=== PATIENT | female | born 1940 | race Caucasian/White ===

== ENCOUNTER → 2016-09-21 | Outpatient (CLI) | payer MEDICARE, OTHER ==
[~2016-09-21] MED LIST: AMITRIPTYLINE50 MG PO; ASPIRIN81 M1 PO; BACTRIM DS 8001 TA1 PO; CELEBREX200 MG PO; CIPROFLOXACIN500 MG PO; EXELON9.5 MG/24 TD; FLUVOXAMINE100 MG PO; LIPITOR10 MG PO; NAMENDA-7 PO; PREMPRO PO; PYRIDIUM200 MG PO; SYNTHROID,LEVO50 MCG PO; VITAMIN E1000 IU PO
== END | disposition home or self-care (01) ==
LOC: US 14:15
DX: S80.11XA Contusion of right lower leg, initial encounter (principal); M79.89 Other specified soft tissue disorders; X58.XXXA Exposure to other specified factors, initial encounter; Y93.89 Activity, other specified; Y92.89 Other specified places as the place of occurrence of the external cause; Y99.8 Other external cause status

== ENCOUNTER → 2016-11-04 | Outpatient (CLI) | payer MEDICARE, OTHER ==
[2016-11-04 10:37] LABS: BASO % 0.7 % (0.0-1.0); EOS # 0.2 10*3/uL (0.0-0.4); HEMATOCRIT 43.8 % (37.0-47.0); HEMOGLOBIN 14.4 g/dl (12.0-16.0); LYMPH % 33.6 % (27.0-41.0); MEAN CELL VOLUME 96.7 fl (81.0-99.0); MEAN CORPUSCULAR HGB 31.8 pg (27.0-31.0); MEAN CORPUSCULAR HGB CONC 32.9 g/dl (33.0-37.0); MEAN PLATELET VOLUME 11.4 fl (9.6-12.3); MONO # 0.4 10*3/uL (0.1-1.0); MONO % 6.9 % (3.0-9.0); NEUT # 3.3 10*3/uL (2.3-7.9); NEUT % 55.5 % (47.0-73.0); PLATELET COUNT AUTOMATED 147 10*3/uL (130-400); RED BLOOD COUNT 4.53 10*6/uL (4.10-5.10); RED CELL DISTRI WIDTH 12.4 % (0-14.5); WHITE BLOOD COUNT 5.9 10*3/uL (4.8-10.8)
[2016-11-04 10:53] LABS: HEMOGLOBIN A1c 5.6 % (4.8-5.6)
[2016-11-04 10:57] LABS: ALBUMIN 3.4 gm/dl (3.1-4.5); ALKALINE PHOSPHATASE 74 U/L (45-117); BILIRUBIN, TOTAL 0.5 mg/dl (0.2-1.0); BUN 23 mg/dl (7-24); CARBON DIOXIDE 26 mmol/L (21-32); CHLORIDE 112 mmol/L (98-107); CHOLESTEROL 111 mg/dL (<200); EST GLOM FILT AFRICAN AMERICAN > 60 ml/min; FREE T4 0.91 ng/dl (0.76-1.46); GLUCOSE 88 mg/dL (65-99); HDL CHOLESTEROL 57 mg/dl (40-60); LDL CHOLESTEROL 44 mg/dL (9-159); POTASSIUM 4.1 mmol/L (3.5-5.1); SGOT/AST 30 IU/L (3-35); SGPT/ALT 50 U/L (12-78); SODIUM 145 mmol/L (136-145); TOTAL PROTEIN 6.3 gm/dL (6.4-8.2); TRIGLYCERIDES 49 mg/dl (<150); VLDL CHOLESTEROL 10 mg/dL (6-40)
== END | disposition home or self-care (01) ==
LOC: LAB 00:35
PROVIDERS: Internal Medicine
DX: E03.9 Hypothyroidism, unspecified (principal); E78.2 Mixed hyperlipidemia

== ENCOUNTER → 2017-05-15 | Outpatient (CLI) | payer MEDICARE, OTHER ==
[2017-05-15 10:45] LABS: BASO % 0.5 % (0.0-1.0); EOS # 0.2 10*3/uL (0.0-0.4); HEMATOCRIT 43.2 % (37.0-47.0); HEMOGLOBIN 14.5 g/dl (12.0-16.0); LYMPH # 1.8 10*3/uL (1.3-4.4); LYMPH % 28.7 % (27.0-41.0); MEAN CELL VOLUME 96.2 fl (81.0-99.0); MEAN CORPUSCULAR HGB 32.3 pg (27.0-31.0); MEAN CORPUSCULAR HGB CONC 33.6 g/dl (33.0-37.0); MEAN PLATELET VOLUME 11.5 fl (9.6-12.3); MONO # 0.5 10*3/uL (0.1-1.0); MONO % 7.2 % (3.0-9.0); NEUT # 3.9 10*3/uL (2.3-7.9); NEUT % 60.4 % (47.0-73.0); PLATELET COUNT AUTOMATED 151 10*3/uL (130-400); RED BLOOD COUNT 4.49 10*6/uL (4.10-5.10); RED CELL DISTRI WIDTH 12.5 % (0-14.5); WHITE BLOOD COUNT 6.4 10*3/uL (4.8-10.8)
[2017-05-15 11:15] LABS: ALBUMIN 3.4 gm/dl (3.1-4.5); ALKALINE PHOSPHATASE 82 U/L (45-117); BUN 25 mg/dl (7-24); CHLORIDE 113 mmol/L (98-107); CHOLESTEROL 123 mg/dL (<200); CREATININE 0.92 mg/dL (0.55-1.02); FREE T4 0.91 ng/dl (0.76-1.46); HDL CHOLESTEROL 58 mg/dl (40-60); LDL CHOLESTEROL 49 mg/dL (9-159); POTASSIUM 3.9 mmol/L (3.5-5.1); SGOT/AST 32 IU/L (3-35); SGPT/ALT 49 U/L (12-78); SODIUM 146 mmol/L (136-145); TOTAL PROTEIN 6.5 gm/dL (6.4-8.2); TRIGLYCERIDES 78 mg/dl (<150); VLDL CHOLESTEROL 16 mg/dL (6-40)
== END | disposition home or self-care (01) ==
LOC: LAB 01:13
PROVIDERS: Internal Medicine
DX: E03.9 Hypothyroidism, unspecified (principal); E78.2 Mixed hyperlipidemia

== ENCOUNTER 2017-07-13 09:37 | Inpatient (IN) | payer MEDICARE, OTHER ==
[~2017-07-13] VITALS: Ht 167.6 cm; Wt 83.1 kg
[2017-07-13] VITALS (9 sets, daily range): BP systolic 92–130; BP diastolic 60–82
--- NOTE | ~2017-07-13 | PR ---
[place], [place] PROGRESS NOTE NAME: HARJEET ENRIQUEZ UNIT #: [id number] ROOM: 510 DOCTOR: RUBEN MEZA MD,JAD BIRTHDATE: [birth year] DOS: 07/22/2017 PULMONARY FOLLOWUP SUBJECTIVE: She has been noted comfortable at this time, resting in the bed. Thoracentesis right-sided pleural fluid was done. The patient was noted significant improvement in the symptoms of shortness of breath. The oxygen requirement was also decreased. She had not been reported any symptoms of hemodynamic instability. The of the patient was present in the room with the patient. She had not been noted with any abdominal pain. She has not been reported any nausea or vomiting. Oral intake of the patient described to be good. The was present in the room with the patient as well. The remaining review of systems cannot be completed because the patient's history of dementia. OBJECTIVE: VITAL SIGNS: For the patient, which has been recorded showed the temperature noted as normal, respiratory rate of 18, heart rate of 72, blood pressure 126/80. HEENT: Examination shows head was atraumatic. Eyes nonicterus. NECK: Supple. CARDIOVASCULAR: S1, S2 is audible. LUNGS: The patient was noted without any wheezing or crackles at the present time. Breaths are noted diminished in the left lower lung. ABDOMEN: Soft, nontender. EXTREMITIES: Without any acute edema. CENTRAL NERVOUS SYSTEM: Does not appear to have a gross focal neurologic deficit. The patient is cooperative with the examination. MUSCULOSKELETAL: No deformities. SKIN: No lesions or rashes. LABORATORY DATA: Pleural fluid analysis, right pleural for the patient noted WBCs of 301 with differentials of 34% neutrophils, 10% lymphocytes, 29% macrophages, ____ epithelial cells. Chemistry of the pleural fluid noted consistent with a transudative pleural effusion. CBC: WBC count 14,000, hemoglobin 13, hematocrit 41, platelet count was normal 137,000. BMP: BUN 26, creatinine was normal, sodium 146, total protein 5.7, albumin 2.7. IMPRESSION: 1. The patient has been currently noted with progressive improvement and resolution of the pleural fluid with acute bilateral pulmonary embolism. 2. Deep venous thrombosis of bilateral lower extremity, stable. 3. Improvement in the respiratory failure was noted. The patient with decreased oxygen requirement. 4. Chronic dementia. The pleural fluid noted transudative effusion rather relative pulmonary embolism with the patient with congestive heart failure, not very clear. PLAN OF MANAGEMENT: Continue diuretics, bronchodilators, oxygen supplementation, and anticoagulation. Discharge planning for the patient could [place], [place] PROGRESS NOTE NAME: HARJEET ENRIQUEZ UNIT #: [id number] ROOM: 510 DOCTOR: RUBEN MEZA MD,JAD BIRTHDATE: [birth year] be started in the next couple of days. In the meantime, continue to maximize the medical management for the patient at this time Usual care, other supportive therapy, plan of management, questions asked by the were answered in the room to his satisfaction. JAD MIRANDA MD CM:PNTRANS [id number] JAD MEZA MD 07/23/17 0330 interface
--- NOTE | ~2017-07-13 | PROC NOTE ---
[place], [place] PROCEDURE NOTE NAME: HARJEET ENRIQUEZ UNIT #: [id number] ROOM: [facility] DOCTOR: RUBEN MEZA MD,JAD BIRTHDATE: [birth year] DOS: 07/21/2017 PROCEDURE: Thoracentesis on the right side with ultrasound guidance at the bedside. PREOPERATIVE DIAGNOSIS: The patient with moderate size pleural fluid on the right side. POSTOPERATIVE DIAGNOSES: Successful removal of 550 mL of pleural fluid without any complications at the bedside. PROCEDURE DESCRIPTION: Informed consent obtained from the patient's . The patient was placed in the sitting position. Ultrasound of the chest was performed. The site of thoracentesis at the right lower posterior chest wall was marked. Skin was cleaned with chlorhexidine solution. After cleaning of the skin, sterile field was achieved. 1% lidocaine was administered in the skin and intercostal space. During administration of local anesthesia for the patient, a small amount of fluid was aspirated confirming the site of thoracentesis in the syringe. After that, a small incision was given in the skin. [place] thoracentesis catheter introduced through the incision into the right pleural space without any difficulty. Initial fluid about 50 mL was drawn in the syringe. The pH was also obtained for this patient on the fluid. Pleural fluid was sent for the appropriate testing to the lab after draining in vacuum bottle the remaining fluid. Total 550 mL of fluid was removed. No complications noted during and after procedure for the patient. The chest x-ray that was done for the patient post-procedure shows marked improvement in aeration of the lung without any pneumothorax, improvement in the aeration of the lungs. JAD MIRANDA MD CM:PROCNOTE:PROCEDURE NOTE [id number] JAD MEZA MD
--- NOTE | ~2017-07-13 | PR ---
[place], [place] PROGRESS NOTE NAME: HARJEET ENRIQUEZ UNIT #: [id number] ROOM: 510 DOCTOR: RUBEN MEZA MD,JAD BIRTHDATE: [birth year] DOS: 07/21/2017 SUBJECTIVE: The patient was noted comfortable at this time without any acute distress. She has been planned for thoracentesis to be done today. Continue oxygen supplementation with nasal cannula. The patient was noted with history of dementia, unable to give any history, has not been reported any pain. She has been noted with intermittent agitation symptoms at this time. She has not been noted any acute hemodynamic instability reported by the nursing staff. The remaining system were not reviewed because of the patient's history of dementia. Consent for thoracentesis was obtained from the patient, has been for bilateral thoracentesis consideration. OBJECTIVE: VITAL SIGNS: Shows a normal temperature, respiratory rate 18, heart rate 81, blood pressure 124/54, pulse oxygen saturation recorded as 93% on 2 liter nasal cannula. HEENT: Ecdd-fv-bkgyvqrc obesity. NECK: Supple. CARDIOVASCULAR: S1, S2 audible. LUNGS: Decreased breath sounds in the lower portion of the lungs bilaterally. ABDOMEN: Soft. Moderate obesity. Bowel sounds present. EXTREMITIES: Show severe edema of the lower extremities. CENTRAL NERVOUS SYSTEM: Currently nonfocal with limited exam. The patient noted mentally awake. SKIN: Visible skin, no lesions or rashes. MUSCULOSKELETAL: Without any acute deformities. LABORATORY DATA: CMP today, BUN 30, creatinine was normal. AST 45, ALT 165. IMPRESSION: 1. The patient who has been noted bilateral pleural fluid with acute bilateral pulmonary embolism and extensive deep venous thrombosis, bilateral lower extremities. 2. History of dementia ____ disease as well with intermittent agitation. 3. Acute respiratory failure secondary to pulmonary embolism. 4. Superimposed congestive heart failure would be considered as well with bilateral pleural effusions. PLAN OF TREATMENT: Thoracentesis was performed with the ultrasound at the bedside. Ultrasound of the chest was performed bilaterally, noted with moderate sized pleural fluid on the right side and a small pleural fluid on the left side. Decision about thoracentesis will made on the right side. [place], [place] PROGRESS NOTE NAME: HARJEET ENRIQUEZ UNIT #: [id number] ROOM: [facility] DOCTOR: JAD MOLINA MD BIRTHDATE: [birth year] JAD MIRANDA MD CM:PNTRANS [id number] JAD MEZA MD 07/22/17 0149 interface
--- NOTE | ~2017-07-13 | PR ---
[place], [place] PROGRESS NOTE NAME: HARJEET ENRIQUEZ UNIT #: [id number] ROOM: 510 DOCTOR: JAD MOLINA MD BIRTHDATE: [birth year] DOS: 07/23/2017 PULMONARY PROGRESS NOTE SUBJECTIVE: She has been noted comfortable at this time, resting in the bed. Oxygen supplementation is used by nasal cannula. The was present in the room with the patient. The patient remains awake and alert. OBJECTIVE: VITAL SIGNS: Temperature 99 degree Fahrenheit, respiratory rate 18, heart rate 74, blood pressure 118/54. Pulse oxygen saturation of the patient was noted as 95% on 2 liters nasal cannula. HEENT: Showed head was atraumatic, eyes nonicterus. NECK: Supple. CARDIOVASCULAR: S1, S2 audible. LUNGS: The patient was noted without any wheezing or crackles at the present time. Breaths are noted diminished in the lower portion of the lungs. There were no crackles. ABDOMEN: Soft, nontender. EXTREMITIES: Without any acute edema. LABORATORY DATA: CBC of the patient this morning, WBC count 14.3, hemoglobin and hematocrit normal, platelet count was normal. BMP of the patient was noted with BUN 27, creatinine 1.07. IMPRESSION: 1. Stable respiratory status, bilateral deep venous thrombosis as well as a pulmonary embolism. 2. Status post thoracentesis with transudative effusion. 3. History of dementia. 4. Resolving acute respiratory failure. PLAN OF TREATMENT: Continuation of the current therapy and plan of management for the patient at the present time without any changes in the treatment. The patient continues to do well on oxygen supplementation, titrate to maintain a pulse oxygen saturation of 92% or greater. Other treatment and plan for the patient as previously. Usual care. [place], [place] PROGRESS NOTE NAME: HARJEET ENRIQUEZ UNIT #: [id number] ROOM: 510 DOCTOR: JAD MOLINA MD BIRTHDATE: [birth year] JAD MIRANDA MD CM:PNTRANS [id number] JAD MEZA MD 07/24/17 0026 interface
--- NOTE | ~2017-07-13 | CON ---
[place], [place] REPORT OF CONSULTATION NAME: HARJEET ENRIQUEZ UNIT #: [id number] ROOM: 510 DOCTOR: RUBEN MEZA MDJAD BIRTHDATE: [birth year] DOS: 07/19/2017 PULMONARY CONSULTATION, EVALUATION, AND MANAGEMENT CONSULTATION REQUESTED BY: Hospitalist. REASON FOR CONSULTATION: Assessment of current pulmonary embolism and bilateral pleural effusions. HISTORY OF PRESENT ILLNESS: This is a 77-year-old white female patient who has been admitted to the hospital on 07/13/2017. History contained in the document is actually from review of the medical record by the other physician. The patient has been noted with history of dementia, unable to get a verbal communications. She has been admitted to the hospital on 07/13/2017. The patient has been noted with recurrent falls at home. The patient has been noted with progressive general weakness, fatigue and a total of 6 falls at home in a week. The patient has been currently hospitalized and treated for those and multiple other conditions of the patient, which has been diagnosed on this admission. She was also noted with good oral nutrition support for a couple of weeks as reported by the . The patient has been reported with symptoms of shortness of breath ongoing for the past few days. The patient has been treated in the hospital and underwent CT of the chest yesterday, which has reported evidence of pulmonary embolism with pleural fluids. She has been currently comfortably resting on the bed using oxygen supplementation, without any acute distress. During the admission, the patient was also noted in nonsustained ventricular tachycardia, with abnormal troponins and the assessment of the patient has been continued by Dr. Hernandes from the Cardiology Services. The echocardiogram was done on this admission, which has been reported with 65-70%, left ventricular ejection fraction. Right ventricular function was noted severely decreased for ith evidence of severe pulmonary hypertension. The right ventricular systolic pressure was noted as 80. REVIEW OF SYSTEMS: Certainly cannot be completed due to lack of communication for the accurate review of systems. PAST MEDICAL HISTORY: On this admission, noted by the primary care attendin. History of hyperlipidemia. 2. Hypothyroidism. 3. Vitamin D deficiency. 4. History of longstanding dementia for about 15 years. 5. Prediabetes mellitus. PAST SURGICAL HISTORY: Reported as: 1. D and C. 2. Bunionectomy of both great toes. SOCIAL HISTORY: The patient is , was a resident [facility] to the admission to the current hospital. Noted a lifetime nonsmoker. No history of alcohol use or illicit drug use reported. [place], [place] REPORT OF CONSULTATION NAME: HARJEET ENRIQUEZ UNIT #: [id number] ROOM: [facility] DOCTOR: RUBEN MEZA MD,JAD BIRTHDATE: [birth year] FAMILY HISTORY: Unknown. MEDICATIONS: Noted on admission by the nursing staff as use of aspirin, Lipitor, calcium carbonate, Celebrex, vitamin D, fluvoxamine, Synthroid, Prempro, Namenda, Seroquel, Exelon patches, vitamin E, and vitamin K2. DRUG ALLERGIES: REPORTED ALLERGY TO THE CODEINE PHOSPHATE. PHYSICAL EXAMINATION: GENERAL: This is a 77-year-old female, who has been currently noted to be awake and alert without any acute distress, sitting on the bed. Her height recorded by the nursing staff on the current admission was 5 feet 6 inches, weight 183 pounds, BMI 29.5. VITAL SIGNS: Recorded, shows the temperature noted as normal in the last 2 days, respiratory rate of 16-20, heart rate 66-72, blood pressure 92/68-124/88. Pulse oxygen saturation with the patient on 4 liters nasal cannula was still noted 98% saturation and then on 2 liters nasal cannula later on this morning was 94% saturation. Pulse oxygen saturation on admission at room air was noted 91% saturation. HEENT: Head is atraumatic. Eyes, nonicterus. NECK: Supple. Oral mucosa appeared to be moist. CARDIOVASCULAR: S1, S2 is audible. LUNGS: Decreased breath sounds noted in the lower portion of the lungs bilaterally. Decreased breath sounds are noted, greater on the right than the left side. There were no crackles heard. There was no wheezing present. EXTREMITIES: Noted with 1-2+ pitting edema. SKIN: Visible skin, no lesions or rashes. MUSCULOSKELETAL: Without any acute obvious deformities. CENTRAL NERVOUS SYSTEM: Unable to assess. The patient noted awake and alert. LABORATORY AND RADIOLOGIC DATA: Review of the radiology data for this patient. The chest x-ray of the patient that was done on 07/13/2017 was noted with somewhat rotated film without any evidence of congestive heart failure, pleural fluid and other findings. The chest x-ray of the patient that was done on 07/18/2017 shows interval development of the pleural fluid bilaterally, greater on the right than the left side with prominent pulmonary hilar area. The patient had a CT scan of the chest and the abdomen done on 07/14/2017 without contrast. Pulmonary artery and the hilar structure could not be clearly delineated because of lack of the IV contrast. Small bilateral pleural fluids were noted for this patient. Hiatal hernia was also present in this patient as well. The CT scan of the chest that was completed yesterday on 07/18/2017, which was ordered by Dr. Hernandes showed large bilateral pulmonary embolism noted involving almost all of the pulmonary arterial branches, right and the left side; however, the clot burden noted significantly larger on the right than the left side. There was no evidence of saddle embolus. Pleural fluid, which were noted previous scan of the chest at this time has been noted marked increase with tihfocmu-ms-mfwmo right pleural fluid and moderate-sized left pleural effusion as well. There were no visible pulmonary masses or any significant lymphadenopathy was noted with the current CT scan of the chest. CMP of the patient that was done on 07/19/2017 shows BUN 27, creatinine was normal, glucose [place], [place] REPORT OF CONSULTATION NAME: HARJEET ENRIQUEZ UNIT #: [id number] ROOM: [facility] DOCTOR: RUBEN MEZA MD,[facility] BIRTHDATE: [birth year] 141, potassium 3.4, AST 15, ALT 249, alkaline phosphatase 183. CBC of the patient of 07/19/2017, WBC count 12.6, hemoglobin 13.2, hematocrit 39.4, platelet count of 91,000. PTT of the patient this morning noted 151. The ammonia level was 24. The PTT of the patient that was done at midnight was 250. The PT/INR were noted as normal. Blood culture of the patient from 07/13/2017 was noted as normal. IMPRESSION: 1. The patient who has been currently admitted to the hospital noted with bilateral submassive nonsaddle pulmonary embolism involving multiple artery branches. 2. Severe pulmonary hypertension manifested with echocardiogram with right heart dysfunction also noted with acute cor pulmonale related to the current submassive pulmonary embolism. 3. History of chronic dementia. 4. Bilateral pleural fluid, most likely related to the congestive heart failure or pulmonary embolus would be likely. 5. Rule out deep venous thrombosis of the lower extremities as well as to assess the burden of the current pulmonary emboli. 6. History of chronic dementia as well. 7. Severe acute hypoxic respiratory failure related to the current acute pulmonary embolism. PLAN OF MANAGEMENT: At this time, continue the unfractionated therapeutic heparin. The patient will require the adjustment of the heparin based on protocol, which has been done by the nursing staff. At this time, hold off using the anticoagulation for this patient. If the respiratory distress worsened, certainly thoracentesis could be done with short-term holding off the anticoagulation with unfractionated heparin to stabilize the respiratory status. The patient does not have any evidence of infection. I will order the ultrasound of bilateral lower extremities to assess the deep venous thrombosis and clot burden remaining in the lower extremities. Titrate oxygen to maintain a saturation of oxygen 92% or greater. Usual care, all other supportive therapy, plan of management and treatment. Additional treatment changes to be done for the patient based on the progression of the illness. Supportive therapy, other plan of management for this patient to be continued as previously. Maximizing medical management of the patient's other non-pulmonary conditions as well on this hospitalization. Thanks for allowing me to participate in the care of this patient. [place], [place] REPORT OF CONSULTATION NAME: HARJEET ENRIQUEZ UNIT #: [id number] ROOM: [facility] DOCTOR: JAD MOLINA MD BIRTHDATE: [birth year] JAD MIRANDA MD CM:CONSTR:REPORT OF CONSULTATION 1428 07/20/17 0356 interface
--- NOTE | ~2017-07-13 | PR ---
[place], [place] PROGRESS NOTE NAME: HARJEET ENRIQUEZ UNIT #: [id number] ROOM: 510 DOCTOR: RUBEN MEZA MD,JAD BIRTHDATE: [birth year] DOS: 07/20/2017 SUBJECTIVE: The patient has been noted comfortable at this time, resting on her bed. Oxygen supplementation continue with the nasal cannula. She has not been noted any symptoms of chest pain or any abdominal pain. The patient could not communicate affectively because of underlying dementia per report. No acute symptoms when she has been asked. OBJECTIVE: VITAL SIGNS: Which has been recorded for the patient showed normal temperature, respiratory rate 18, heart rate of 85, blood pressure of 90/61. The pulse oxygen saturation of the patient recorded on 2 liters 97% saturation. HEENT: Examination shows head was atraumatic. Eyes nonicterus. NECK: Supple. CARDIOVASCULAR: S1, S2 audible. LUNGS: Noted decreased breaths sounds previously noted bilaterally in the lower lungs. There were no crackles or wheezing. ABDOMEN: Soft, nontender. Bowel sounds present. EXTREMITIES: The patient was noted without any new changes. Edema noted. SKIN: Visible skin, no lesions or rashes. MUSCULOSKELETAL: No deformities. CENTRAL NERVOUS SYSTEM: Intact. LABORATORY DATA: The patient's CBC on 07/20/2017, WBC count 16.1, hemoglobin and hematocrit was normal, platelet count was 113,000, mildly decreased. CMP of the patient, BUN 34, creatinine 1.04, glucose 158. AST 62, ALT 213, and alkaline phosphatase of 205. IMAGING STUDIES: Ultrasound of bilateral lower extremity that I ordered for the patient was completed, it shows evidence of acute deep venous thrombosis, which were present in both of the legs involving the right common femoral and superficial veins as well as left superficial femoral vein as well. IMPRESSION: 1. The patient who has been currently noted with acute hypoxic respiratory failure with bilateral large pleural fluid. 2. Non-saddle bilateral pulmonary embolism. 3. Extensive deep venous thrombosis of bilateral lower extremity involving superficial femoral veins, both sides and the common femoral vein of the right extremity as well. 4. History of chronic dementia. 5. Mild thrombocytopenia, whether it is related to the current thrombotic process with consumption or other etiologies to be determined. PLAN OF MANAGEMENT: The patient has been currently started on Xarelto 15 mg p.o. b.i.d. by primary care physician. The leukocytosis will be monitored. If the family member agrees for the thoracentesis for this patient for symptomatic management, certainly could be done, otherwise continue conservative treatment. All other supportive therapy, plan of management as in progress will be continued. Usual care. All other supportive treatment and therapies as well. [place], [place] PROGRESS NOTE NAME: HARJEET ENRIQUEZ UNIT #: [id number] ROOM: [facility] DOCTOR: JAD MOLINA MD BIRTHDATE: [birth year] Additional treatment changes will be done based on the progression of the illness. JAD MIRANDA MD CM:PNTRANS [id number] JAD MEZA MD 07/20/17 2347 interface
[~2017-07-13 09:37] MED LIST changes: -VITAMIN E1000 IU PO; +VITAMIN E400 UNIT PO
[2017-07-13 10:07] LABS: BASO % 0.2 % (0.0-1.0); EOS % 0.1 % (1.0-4.0); HEMATOCRIT 42.3 % (37.0-47.0); HEMOGLOBIN 14.1 g/dl (12.0-16.0); MEAN CELL VOLUME 97.7 fl (81.0-99.0); MEAN CORPUSCULAR HGB 32.6 pg (27.0-31.0); MEAN CORPUSCULAR HGB CONC 33.3 g/dl (33.0-37.0); MEAN PLATELET VOLUME 11.9 fl (9.6-12.3); MONO # 0.7 10*3/uL (0.1-1.0); MONO % 5.6 % (3.0-9.0); NEUT # 10.9 10*3/uL (2.3-7.9); NEUT % 85.6 % (47.0-73.0); PLATELET COUNT AUTOMATED 112 10*3/uL (130-400); RED BLOOD COUNT 4.33 10*6/uL (4.10-5.10); RED CELL DISTRI WIDTH 13.2 % (0-14.5); WHITE BLOOD COUNT 12.7 10*3/uL (4.8-10.8)
[2017-07-13 10:16] LABS: ACT PARTIAL THROMBO TIME 19.6 SECONDS (20.8-31.5)
[2017-07-13 10:22] LABS: ALBUMIN 3.5 gm/dl (3.1-4.5); CREATININE 1.5 mg/dL (0.55-1.02); POTASSIUM 4.4 mmol/L (3.5-5.1); TOTAL PROTEIN 6.8 gm/dL (6.4-8.2)
[2017-07-13 10:26] LABS: TROPONIN I 0.079 ng/ml (<0.045)
[2017-07-13 11:43] LABS: BILIRUBIN NEGATIVE (NEGATIVE); BLOOD 2+ (NEGATIVE); CLARITY SL CLOUDY (CLEAR); COLOR YELLOW (YELLOW); GLUCOSE NEGATIVE (NEGATIVE); KETONE TRACE (NEGATIVE); LEUKO ESTERASE NEGATIVE (NEGATIVE); NITRITE POSITIVE (NEGATIVE); PH 5.5 (5.0-9.0); SPECIFIC GRAVITY >= 1.030 (1.005-1.030)
[2017-07-13 12:08] LABS: BACTERIA 2+; CALCIUM OXALATE CRYSTALS 1+; MUCOUS 1+
[2017-07-13] MEDS ORDERED: QUETIAPINE FUM100 M1 PO (13:07)
[2017-07-13] MEDS ORDERED: VITAMIN D31000 UNI1 PO (13:29)
[2017-07-13] MEDS ORDERED: VITAMIN K240 MCG PO (13:32)
[2017-07-13] MEDS ORDERED: CALCIUM CARB500 MG PO (13:34)
[2017-07-13 14:47] LABS: CKMB 3.2 ng/ml (0.5-3.6)
[2017-07-14] VITALS: BP 103/57
[2017-07-14 07:45] LABS: BASO % 0.3 % (0.0-1.0); EOS % 0.1 % (1.0-4.0); HEMATOCRIT 43.7 % (37.0-47.0); HEMOGLOBIN 14.3 g/dl (12.0-16.0); LYMPH # 1.8 10*3/uL (1.3-4.4); LYMPH % 12.3 % (27.0-41.0); MEAN CELL VOLUME 99.3 fl (81.0-99.0); MEAN CORPUSCULAR HGB 32.5 pg (27.0-31.0); MEAN CORPUSCULAR HGB CONC 32.7 g/dl (33.0-37.0); MEAN PLATELET VOLUME 12.4 fl (9.6-12.3); MONO # 1.1 10*3/uL (0.1-1.0); MONO % 7.3 % (3.0-9.0); NEUT # 11.5 10*3/uL (2.3-7.9); NEUT % 79.5 % (47.0-73.0); PLATELET COUNT AUTOMATED 111 10*3/uL (130-400); RED CELL DISTRI WIDTH 13.3 % (0-14.5); WHITE BLOOD COUNT 14.5 10*3/uL (4.8-10.8)
[2017-07-14 08:00] VITALS: BP 106/77
[2017-07-14 08:13] LABS: CREATININE 1.34 mg/dL (0.55-1.02); PHOSPHOROUS 3.7 mg/dL (2.5-4.9); POTASSIUM 4.6 mmol/L (3.5-5.1); TOTAL PROTEIN 5.8 gm/dL (6.4-8.2)
[2017-07-14 08:18] LABS: THYROID STIM HORMONE (HS) 3.86 uIU/ml (0.358-4.75)
[2017-07-14 09:04] LABS: VITAMIN D, 25-HYDROXY 26.9 ng/mL (30-100)
[2017-07-14 11:51] VITALS: BP 118/60
[2017-07-14 16:00] VITALS: BP 108/52
[2017-07-14 20:00] VITALS: BP 100/72
[2017-07-15] VITALS: BP 105/73
[2017-07-15 06:04] LABS: BASO % 0.3 % (0.0-1.0); EOS % 0.1 % (1.0-4.0); HEMATOCRIT 42.6 % (37.0-47.0); LYMPH # 2.1 10*3/uL (1.3-4.4); LYMPH % 13.2 % (27.0-41.0); MEAN CELL VOLUME 99.5 fl (81.0-99.0); MEAN CORPUSCULAR HGB 32.7 pg (27.0-31.0); MEAN CORPUSCULAR HGB CONC 32.9 g/dl (33.0-37.0); MEAN PLATELET VOLUME 12.3 fl (9.6-12.3); MONO # 1.3 10*3/uL (0.1-1.0); MONO % 8.1 % (3.0-9.0); NEUT # 12.4 10*3/uL (2.3-7.9); NEUT % 77.7 % (47.0-73.0); NUCLEATED RED BLOOD CELL 0.2 % (0.0-0.0); PLATELET COUNT AUTOMATED 102 10*3/uL (130-400); RED BLOOD COUNT 4.28 10*6/uL (4.10-5.10); RED CELL DISTRI WIDTH 13.3 % (0-14.5)
[2017-07-15 06:37] LABS: CREATININE 1.37 mg/dL (0.55-1.02); POTASSIUM 3.9 mmol/L (3.5-5.1); TOTAL PROTEIN 5.7 gm/dL (6.4-8.2)
[2017-07-15 08:00] VITALS: BP 114/60
[2017-07-15 12:00] VITALS: BP 104/59
[2017-07-15 16:00] VITALS: BP 112/66
[2017-07-15 18:45] LABS: CREATININE 1.32 mg/dL (0.55-1.02)
[2017-07-15 18:54] LABS: TROPONIN I 0.052 ng/ml (<0.045)
[2017-07-15 20:00] VITALS: BP 121/74
[2017-07-16] VITALS: BP 121/67
[2017-07-16 05:54] LABS: BASO % 0.2 % (0.0-1.0); EOS # 0.1 10*3/uL (0.0-0.4); EOS % 0.4 % (1.0-4.0); HEMATOCRIT 41.9 % (37.0-47.0); HEMOGLOBIN 13.9 g/dl (12.0-16.0); MEAN CELL VOLUME 97.7 fl (81.0-99.0); MEAN CORPUSCULAR HGB 32.4 pg (27.0-31.0); MEAN CORPUSCULAR HGB CONC 33.2 g/dl (33.0-37.0); MEAN PLATELET VOLUME 12.7 fl (9.6-12.3); MONO # 1.2 10*3/uL (0.1-1.0); MONO % 8.1 % (3.0-9.0); NEUT # 11.1 10*3/uL (2.3-7.9); NEUT % 76.7 % (47.0-73.0); NUCLEATED RED BLOOD CELL 0.1 10*3/uL (0.0-0.0); NUCLEATED RED BLOOD CELL 0.6 % (0.0-0.0); PLATELET COUNT AUTOMATED 97 10*3/uL (130-400); RED BLOOD COUNT 4.29 10*6/uL (4.10-5.10); RED CELL DISTRI WIDTH 13.2 % (0-14.5); WHITE BLOOD COUNT 14.4 10*3/uL (4.8-10.8)
[2017-07-16 06:09] LABS: ALKALINE PHOSPHATASE 144 U/L (45-117); BILIRUBIN, DIRECT 0.3 mg/dL (0.0-0.2); BUN 30 mg/dl (7-24); CHLORIDE 108 mmol/L (98-107); CREATININE 1.07 mg/dL (0.55-1.02); POTASSIUM 3.8 mmol/L (3.5-5.1); SGOT/AST 140 IU/L (3-35); SGPT/ALT 231 U/L (12-78); SODIUM 141 mmol/L (136-145); TOTAL PROTEIN 5.7 gm/dL (6.4-8.2)
[2017-07-16 08:00] VITALS: BP 104/69
[2017-07-16 12:00] VITALS: BP 110/75
[2017-07-16 16:00] VITALS: BP 101/64
[2017-07-16 20:00] VITALS: BP 123/63
[2017-07-17] VITALS: BP 106/67
[2017-07-17 07:15] LABS: BASO % 0.3 % (0.0-1.0); EOS # 0.3 10*3/uL (0.0-0.4); HEMATOCRIT 42.7 % (37.0-47.0); HEMOGLOBIN 14.2 g/dl (12.0-16.0); LYMPH # 1.2 10*3/uL (1.3-4.4); LYMPH % 9.8 % (27.0-41.0); MEAN CELL VOLUME 98.8 fl (81.0-99.0); MEAN CORPUSCULAR HGB 32.9 pg (27.0-31.0); MEAN CORPUSCULAR HGB CONC 33.3 g/dl (33.0-37.0); MEAN PLATELET VOLUME 13.2 fl (9.6-12.3); MONO % 7.7 % (3.0-9.0); NEUT % 79.6 % (47.0-73.0); NUCLEATED RED BLOOD CELL 0.1 10*3/uL (0.0-0.0); NUCLEATED RED BLOOD CELL 0.8 % (0.0-0.0); PLATELET COUNT AUTOMATED 79 10*3/uL (130-400); RED BLOOD COUNT 4.32 10*6/uL (4.10-5.10); RED CELL DISTRI WIDTH 13.4 % (0-14.5); WHITE BLOOD COUNT 12.6 10*3/uL (4.8-10.8)
[2017-07-17 07:33] LABS: ALBUMIN 2.7 gm/dl (3.1-4.5); CREATININE 1.08 mg/dL (0.55-1.02); POTASSIUM 3.9 mmol/L (3.5-5.1); TOTAL PROTEIN 5.6 gm/dL (6.4-8.2)
[2017-07-17 08:00] VITALS: BP 108/73
[2017-07-17 12:00] VITALS: BP 115/73
[2017-07-17 15:36] LABS: BILIRUBIN NEGATIVE (NEGATIVE); BLOOD 1+ (NEGATIVE); CLARITY CLEAR (CLEAR); COLOR YELLOW (YELLOW); GLUCOSE NEGATIVE (NEGATIVE); KETONE 1+ (NEGATIVE); LEUKO ESTERASE NEGATIVE (NEGATIVE); NITRITE NEGATIVE (NEGATIVE); UROBILINOGEN 0.2 E.U./dl (0.2-1.0)
[2017-07-17 15:45] LABS: BACTERIA 2+; MUCOUS TRACE; RBC 31-40 rbc/hpf (0-2)
[2017-07-17 16:00] VITALS: BP 112/66
[2017-07-17 16:58] LABS: ABG BASE EXCESS -3.7 mmol/L (-2.0-2.0); ABG HCO3 18.3 mmol/l (22-26); ABG O2 SATURATION 90.6 % (95-97); ARTERIAL BLOOD GAS PCO2 27.7 mmHg (35-45); ARTERIAL BLOOD GAS PH 7.44 (7.35-7.45); ARTERIAL BLOOD GAS PO2 63.8 mmHg (80-90)
[2017-07-17 20:00] VITALS: BP 122/66
[2017-07-18 00:30] VITALS: BP 120/51
[2017-07-18 06:59] LABS: ALBUMIN 2.7 gm/dl (3.1-4.5); ALKALINE PHOSPHATASE 180 U/L (45-117); BUN 28 mg/dl (7-24); CHLORIDE 106 mmol/L (98-107); CREATININE 0.92 mg/dL (0.55-1.02); POTASSIUM 3.7 mmol/L (3.5-5.1); SGOT/AST 115 IU/L (3-35); SGPT/ALT 266 U/L (12-78); SODIUM 139 mmol/L (136-145); TOTAL PROTEIN 5.7 gm/dL (6.4-8.2)
[2017-07-18 08:00] VITALS: BP 116/68
[2017-07-18 12:00] VITALS: BP 100/72
[2017-07-18 16:00] VITALS: BP 106/71; BP 92/68
[2017-07-18 16:23] LABS: BASO % 0.2 % (0.0-1.0); EOS # 0.4 10*3/uL (0.0-0.4); EOS % 3.1 % (1.0-4.0); HEMATOCRIT 43.1 % (37.0-47.0); HEMOGLOBIN 14.4 g/dl (12.0-16.0); LYMPH % 7.5 % (27.0-41.0); MEAN CORPUSCULAR HGB 32.7 pg (27.0-31.0); MEAN CORPUSCULAR HGB CONC 33.4 g/dl (33.0-37.0); MEAN PLATELET VOLUME 12.2 fl (9.6-12.3); MONO # 1.1 10*3/uL (0.1-1.0); MONO % 7.8 % (3.0-9.0); NEUT # 10.8 10*3/uL (2.3-7.9); NUCLEATED RED BLOOD CELL 0.1 10*3/uL (0.0-0.0); NUCLEATED RED BLOOD CELL 0.7 % (0.0-0.0); PLATELET COUNT AUTOMATED 100 10*3/uL (130-400); RED CELL DISTRI WIDTH 13.8 % (0-14.5); WHITE BLOOD COUNT 13.4 10*3/uL (4.8-10.8)
[2017-07-18 16:32] LABS: ACT PARTIAL THROMBO TIME 21.6 SECONDS (20.8-31.5); INTERNATIONAL NORM RATIO 1.1 (2.0-3.5)
[2017-07-18 20:00] VITALS: BP 108/84
[2017-07-19] VITALS: BP 98/61
[2017-07-19 04:00] VITALS: BP 124/88
[2017-07-19 06:46] LABS: BASO % 0.2 % (0.0-1.0); EOS # 0.4 10*3/uL (0.0-0.4); EOS % 3.1 % (1.0-4.0); HEMATOCRIT 39.4 % (37.0-47.0); HEMOGLOBIN 13.2 g/dl (12.0-16.0); LYMPH # 1.6 10*3/uL (1.3-4.4); LYMPH % 12.7 % (27.0-41.0); MEAN CELL VOLUME 97.3 fl (81.0-99.0); MEAN CORPUSCULAR HGB 32.6 pg (27.0-31.0); MEAN CORPUSCULAR HGB CONC 33.5 g/dl (33.0-37.0); MEAN PLATELET VOLUME 13.2 fl (9.6-12.3); NEUT # 9.5 10*3/uL (2.3-7.9); NEUT % 75.4 % (47.0-73.0); NUCLEATED RED BLOOD CELL 0.1 10*3/uL (0.0-0.0); NUCLEATED RED BLOOD CELL 0.4 % (0.0-0.0); PLATELET COUNT AUTOMATED 91 10*3/uL (130-400); RED BLOOD COUNT 4.05 10*6/uL (4.10-5.10); RED CELL DISTRI WIDTH 14.1 % (0-14.5); WHITE BLOOD COUNT 12.6 10*3/uL (4.8-10.8)
[2017-07-19 06:51] LABS: ALBUMIN 2.6 gm/dl (3.1-4.5); BUN 27 mg/dl (7-24); CHLORIDE 107 mmol/L (98-107); POTASSIUM 3.4 mmol/L (3.5-5.1); SODIUM 142 mmol/L (136-145)
[2017-07-19 06:55] LABS: ALKALINE PHOSPHATASE 183 U/L (45-117); CREATININE 1.02 mg/dL (0.55-1.02); SGOT/AST 105 IU/L (3-35); SGPT/ALT 249 U/L (12-78); TOTAL PROTEIN 5.3 gm/dL (6.4-8.2)
[2017-07-19 08:00] VITALS: BP 98/68
[2017-07-19 12:00] VITALS: BP 96/58
[2017-07-19 16:00] VITALS: BP 111/61
[2017-07-19 19:58] VITALS: BP 97/63
[2017-07-20 00:08] VITALS: BP 98/61
[2017-07-20 05:47] LABS: BASO % 0.2 % (0.0-1.0); EOS # 0.5 10*3/uL (0.0-0.4); EOS % 3.1 % (1.0-4.0); HEMATOCRIT 40.9 % (37.0-47.0); HEMOGLOBIN 13.5 g/dl (12.0-16.0); LYMPH # 1.5 10*3/uL (1.3-4.4); LYMPH % 9.2 % (27.0-41.0); MEAN CELL VOLUME 98.1 fl (81.0-99.0); MEAN CORPUSCULAR HGB 32.4 pg (27.0-31.0); MEAN PLATELET VOLUME 12.8 fl (9.6-12.3); MONO # 1.3 10*3/uL (0.1-1.0); MONO % 7.7 % (3.0-9.0); NEUT # 12.7 10*3/uL (2.3-7.9); NEUT % 79.1 % (47.0-73.0); NUCLEATED RED BLOOD CELL 0.1 10*3/uL (0.0-0.0); NUCLEATED RED BLOOD CELL 0.6 % (0.0-0.0); PLATELET COUNT AUTOMATED 113 10*3/uL (130-400); RED BLOOD COUNT 4.17 10*6/uL (4.10-5.10); RED CELL DISTRI WIDTH 14.6 % (0-14.5); WHITE BLOOD COUNT 16.1 10*3/uL (4.8-10.8)
[2017-07-20 06:01] LABS: ALBUMIN 2.6 gm/dl (3.1-4.5); ALKALINE PHOSPHATASE 205 U/L (45-117); BUN 34 mg/dl (7-24); CHLORIDE 108 mmol/L (98-107); CREATININE 1.04 mg/dL (0.55-1.02); SGOT/AST 62 IU/L (3-35); SGPT/ALT 213 U/L (12-78); TOTAL PROTEIN 5.6 gm/dL (6.4-8.2)
[2017-07-20 06:05] LABS: SODIUM 144 mmol/L (136-145)
[2017-07-20 06:06] LABS: POTASSIUM 4.4 mmol/L (3.5-5.1)
[2017-07-20 06:30] VITALS: BP 90/76
[2017-07-20 12:00] VITALS: BP 100/82
[2017-07-20 16:00] VITALS: BP 130/75
[2017-07-20 20:00] VITALS: BP 124/60
[2017-07-21] VITALS: BP 124/54
[2017-07-21 07:04] LABS: ALBUMIN 2.6 gm/dl (3.1-4.5); ALKALINE PHOSPHATASE 229 U/L (45-117); BUN 30 mg/dl (7-24); CHLORIDE 111 mmol/L (98-107); CREATININE 0.93 mg/dL (0.55-1.02); POTASSIUM 4.7 mmol/L (3.5-5.1); SGOT/AST 45 IU/L (3-35); SGPT/ALT 165 U/L (12-78); SODIUM 144 mmol/L (136-145); TOTAL PROTEIN 6.1 gm/dL (6.4-8.2)
[2017-07-21 08:00] VITALS: BP 105/84
[2017-07-21 09:45] LABS: BODY FLUID WBC 301 /uL
[2017-07-21 12:00] VITALS: BP 122/66
[2017-07-21 16:40] VITALS: BP 134/75
[2017-07-21 20:00] VITALS: BP 133/73
[2017-07-22] VITALS: BP 94/58
[2017-07-22 06:12] LABS: BASO % 0.3 % (0.0-1.0); EOS # 0.2 10*3/uL (0.0-0.4); EOS % 1.2 % (1.0-4.0); HEMATOCRIT 41.1 % (37.0-47.0); HEMOGLOBIN 13.3 g/dl (12.0-16.0); LYMPH # 1.5 10*3/uL (1.3-4.4); LYMPH % 10.9 % (27.0-41.0); MEAN CELL VOLUME 101.2 fl (81.0-99.0); MEAN CORPUSCULAR HGB 32.8 pg (27.0-31.0); MEAN CORPUSCULAR HGB CONC 32.4 g/dl (33.0-37.0); MEAN PLATELET VOLUME 12.5 fl (9.6-12.3); MONO # 1.1 10*3/uL (0.1-1.0); MONO % 7.9 % (3.0-9.0); NEUT # 11.2 10*3/uL (2.3-7.9); NEUT % 79.3 % (47.0-73.0); NUCLEATED RED BLOOD CELL 0.1 10*3/uL (0.0-0.0); NUCLEATED RED BLOOD CELL 0.4 % (0.0-0.0); PLATELET COUNT AUTOMATED 137 10*3/uL (130-400); RED BLOOD COUNT 4.06 10*6/uL (4.10-5.10); RED CELL DISTRI WIDTH 14.8 % (0-14.5); WHITE BLOOD COUNT 14.1 10*3/uL (4.8-10.8)
[2017-07-22 06:34] LABS: CHLORIDE 111 mmol/L (98-107); POTASSIUM 4.5 mmol/L (3.5-5.1); SODIUM 146 mmol/L (136-145)
[2017-07-22 06:49] LABS: ALBUMIN 2.6 gm/dl (3.1-4.5); ALKALINE PHOSPHATASE 203 U/L (45-117); BUN 26 mg/dl (7-24); CREATININE 0.91 mg/dL (0.55-1.02); SGOT/AST 36 IU/L (3-35); SGPT/ALT 124 U/L (12-78); TOTAL PROTEIN 5.7 gm/dL (6.4-8.2)
[2017-07-22 07:33] LABS: BF LYMPHOCYTES 10 %; BF MACROPHAGES 29 %; BF MESOTHELIALS 27 %; BF NEUTROPHILS 34 %
[2017-07-22 08:00] VITALS: BP 120/78
[2017-07-22 12:00] VITALS: BP 126/80
[2017-07-22 16:00] VITALS: BP 104/60
[2017-07-22 20:00] VITALS: BP 132/90
[2017-07-23] VITALS: BP 149/84
[2017-07-23 07:04] LABS: BASO % 0.3 % (0.0-1.0); EOS # 0.2 10*3/uL (0.0-0.4); EOS % 1.1 % (1.0-4.0); HEMATOCRIT 40.2 % (37.0-47.0); LYMPH # 2.1 10*3/uL (1.3-4.4); MEAN CELL VOLUME 102.3 fl (81.0-99.0); MEAN CORPUSCULAR HGB 33.1 pg (27.0-31.0); MEAN CORPUSCULAR HGB CONC 32.3 g/dl (33.0-37.0); MEAN PLATELET VOLUME 12.4 fl (9.6-12.3); MONO # 1.1 10*3/uL (0.1-1.0); MONO % 7.8 % (3.0-9.0); NEUT # 10.7 10*3/uL (2.3-7.9); NUCLEATED RED BLOOD CELL 0.2 % (0.0-0.0); PLATELET COUNT AUTOMATED 147 10*3/uL (130-400); RED BLOOD COUNT 3.93 10*6/uL (4.10-5.10); WHITE BLOOD COUNT 14.3 10*3/uL (4.8-10.8)
[2017-07-23 07:10] LABS: BUN 27 mg/dl (7-24); CHLORIDE 113 mmol/L (98-107); CREATININE 1.04 mg/dL (0.55-1.02); POTASSIUM 4.5 mmol/L (3.5-5.1); SODIUM 148 mmol/L (136-145)
[2017-07-23 08:00] VITALS: BP 118/58
[2017-07-23 12:00] VITALS: BP 107/76
[2017-07-23 16:00] VITALS: BP 116/80
[2017-07-23] MEDS ORDERED: CIPROFLOXACIN500 M4 PO (17:50)
[2017-07-23 20:00] VITALS: BP 106/59
[2017-07-24 00:17] VITALS: BP 114/57
== END 2017-07-24 01:15 | disposition short-term general hospital (02) | DRG 871 ==
LOC: ED 09:37 → 5E 12:19 → EDHOLD 12:19 → 5E 12:24
PROVIDERS: Family Medicine; Internal Medicine; Internal Medicine Critical Care Medicine; Nurse Practitioner Family; Obstetrics & Gynecology; Student in an Organized Health Care Education/Training Program
PROC: 0W993ZZ Drainage of Right Pleural Cavity, Percutaneous Approach (ICD-10-PCS; principal; 2017-07-21)
DX: A41.9 Sepsis, unspecified organism (principal); N17.0 Acute kidney failure with tubular necrosis; I26.99 Other pulmonary embolism without acute cor pulmonale; J96.01 Acute respiratory failure with hypoxia; E43 Unspecified severe protein-calorie malnutrition; G93.41 Metabolic encephalopathy; I47.2 Ventricular tachycardia; J90 Pleural effusion, not elsewhere classified; D69.6 Thrombocytopenia, unspecified; E87.2 Acidosis; I50.32 Chronic diastolic (congestive) heart failure; N30.01 Acute cystitis with hematuria; F02.81 Dementia in other diseases classified elsewhere, unspecified severity, with behavioral disturbance; I82.493 Acute embolism and thrombosis of other specified deep vein of lower extremity, bilateral; E87.0 Hyperosmolality and hypernatremia; I82.413 Acute embolism and thrombosis of femoral vein, bilateral; E83.41 Hypermagnesemia; L89.151 Pressure ulcer of sacral region, stage 1; R65.20 Severe sepsis without septic shock; E87.8 Other disorders of electrolyte and fluid balance, not elsewhere classified; E86.0 Dehydration; R29.6 Repeated falls; E66.3 Overweight; K76.0 Fatty (change of) liver, not elsewhere classified; K72.90 Hepatic failure, unspecified without coma; K80.20 Calculus of gallbladder without cholecystitis without obstruction; E78.5 Hyperlipidemia, unspecified; E03.9 Hypothyroidism, unspecified; G30.9 Alzheimer's disease, unspecified; R73.03 Prediabetes; I27.20 Pulmonary hypertension, unspecified; I07.1 Rheumatic tricuspid insufficiency; I11.0 Hypertensive heart disease with heart failure; Z79.82 Long term (current) use of aspirin; Z88.5 Allergy status to narcotic agent

== ENCOUNTER 2017-08-15 10:30 | Inpatient (IN) | payer MEDICARE, OTHER ==
[~2017-08-15] VITALS: Ht 167.6 cm; Wt 74.4 kg
[2017-08-15 10:30] VITALS: BP 124/86
[~2017-08-15 10:30] MED LIST changes: +CALCIUM CARB500 MG PO; +CIPROFLOXACIN500 M4 PO; +QUETIAPINE FUM100 M1 PO; +VITAMIN D31000 UNI1 PO; +VITAMIN K240 MCG PO
[2017-08-15 11:15] LABS: BASO # 0.1 10*3/uL (0.0-0.1); BASO % 0.3 % (0.0-1.0); EOS # 0.1 10*3/uL (0.0-0.4); EOS % 0.4 % (1.0-4.0); HEMATOCRIT 47.6 % (37.0-47.0); HEMOGLOBIN 15.2 g/dl (12.0-16.0); LYMPH # 2.7 10*3/uL (1.3-4.4); LYMPH % 17.1 % (27.0-41.0); MEAN CELL VOLUME 98.1 fl (81.0-99.0); MEAN CORPUSCULAR HGB 31.3 pg (27.0-31.0); MEAN CORPUSCULAR HGB CONC 31.9 g/dl (33.0-37.0); MEAN PLATELET VOLUME 11.7 fl (9.6-12.3); MONO # 1.3 10*3/uL (0.1-1.0); MONO % 8.1 % (3.0-9.0); NEUT # 11.6 10*3/uL (2.3-7.9); NEUT % 73.7 % (47.0-73.0); PLATELET COUNT AUTOMATED 339 10*3/uL (130-400); RED BLOOD COUNT 4.85 10*6/uL (4.10-5.10); RED CELL DISTRI WIDTH 13.7 % (0-14.5); WHITE BLOOD COUNT 15.7 10*3/uL (4.8-10.8)
[2017-08-15 11:33] LABS: ALBUMIN 3.2 gm/dl (3.1-4.5); CREATININE 1.11 mg/dL (0.55-1.02); TOTAL PROTEIN 7.6 gm/dL (6.4-8.2)
[2017-08-15 12:18] LABS: BILIRUBIN 1+ (NEGATIVE); BLOOD 3+ (NEGATIVE); CLARITY CLOUDY (CLEAR); COLOR YELLOW (YELLOW); GLUCOSE NEGATIVE (NEGATIVE); KETONE TRACE (NEGATIVE); LEUKO ESTERASE 2+ (NEGATIVE); NITRITE POSITIVE (NEGATIVE); SPECIFIC GRAVITY 1.025 (1.005-1.030); UROBILINOGEN 0.2 E.U./dl (0.2-1.0)
[2017-08-15 12:23] VITALS: BP 124/71
[2017-08-15 12:29] LABS: WBC TNTC wbc/hpf (0-5)
[2017-08-15 12:31] LABS: BACTERIA 3+; EPITHELIAL CELLS 15-20; RBC 16-20 rbc/hpf (0-2)
[2017-08-15 13:15] VITALS: BP 147/68
[2017-08-15] MEDS ORDERED: 8 HOUR650 MG PO (13:16)
[2017-08-15] MEDS ORDERED: ELIQUIS5 M1 PO (13:18)
[2017-08-15] MEDS ORDERED: HYDROXYZINE PAM25 MG IM (13:21)
[2017-08-15] MEDS ORDERED: GENERLAC10 GM/15 M PO (13:22)
[2017-08-15] MEDS ORDERED: METOPROLOL SUCC50 M1 PO (13:25)
[2017-08-15] MEDS ORDERED: OYSTER SHELL C1 EAC1 PO (13:26)
[2017-08-15 16:00] VITALS: BP 121/80
[2017-08-15 20:00] VITALS: BP 133/65
[2017-08-16] VITALS: BP 126/51
[2017-08-16] MEDS ORDERED: HYDROXYZINE HCL IM (04:10)
[2017-08-16] MEDS ORDERED: LIQUACEL PO (04:14)
[2017-08-16] MEDS ORDERED: KENALOG 0.1%80 GM T (04:15)
[2017-08-16 06:51] LABS: BASO # 0.1 10*3/uL (0.0-0.1); BASO % 0.4 % (0.0-1.0); EOS # 0.3 10*3/uL (0.0-0.4); HEMATOCRIT 46.4 % (37.0-47.0); HEMOGLOBIN 14.2 g/dl (12.0-16.0); LYMPH # 1.3 10*3/uL (1.3-4.4); LYMPH % 10.7 % (27.0-41.0); MEAN CORPUSCULAR HGB 31.2 pg (27.0-31.0); MEAN CORPUSCULAR HGB CONC 30.6 g/dl (33.0-37.0); MEAN PLATELET VOLUME 11.7 fl (9.6-12.3); MONO # 0.8 10*3/uL (0.1-1.0); MONO % 6.3 % (3.0-9.0); NEUT # 9.8 10*3/uL (2.3-7.9); NEUT % 80.2 % (47.0-73.0); PLATELET COUNT AUTOMATED 252 10*3/uL (130-400); RED BLOOD COUNT 4.55 10*6/uL (4.10-5.10); RED CELL DISTRI WIDTH 13.9 % (0-14.5); WHITE BLOOD COUNT 12.3 10*3/uL (4.8-10.8)
[2017-08-16 07:08] LABS: ALBUMIN 2.6 gm/dl (3.1-4.5); BUN 24 mg/dl (7-24); CHLORIDE 126 mmol/L (98-107); POTASSIUM 3.9 mmol/L (3.5-5.1); SODIUM 158 mmol/L (136-145)
[2017-08-16 07:12] LABS: ALKALINE PHOSPHATASE 109 U/L (45-117); CREATININE 1.05 mg/dL (0.55-1.02); PHOSPHOROUS 2.8 mg/dL (2.5-4.9); SGOT/AST 30 IU/L (3-35); SGPT/ALT 29 U/L (12-78); TOTAL PROTEIN 6.5 gm/dL (6.4-8.2)
[2017-08-16 07:29] LABS: ACT PARTIAL THROMBO TIME 21.9 SECONDS (20.8-31.5); INTERNATIONAL NORM RATIO 1.1 (2.0-3.5)
[2017-08-16 08:00] VITALS: BP 138/94
[2017-08-16 12:00] VITALS: BP 125/98
[2017-08-16 16:00] VITALS: BP 98/63
[2017-08-16 20:00] VITALS: BP 140/72
[2017-08-17] VITALS: BP 137/68
[2017-08-17 07:04] LABS: BASO # 0.1 10*3/uL (0.0-0.1); BASO % 0.5 % (0.0-1.0); EOS # 0.5 10*3/uL (0.0-0.4); EOS % 3.8 % (1.0-4.0); HEMATOCRIT 45.8 % (37.0-47.0); HEMOGLOBIN 13.9 g/dl (12.0-16.0); LYMPH # 1.9 10*3/uL (1.3-4.4); LYMPH % 15.3 % (27.0-41.0); MEAN CELL VOLUME 101.1 fl (81.0-99.0); MEAN CORPUSCULAR HGB 30.7 pg (27.0-31.0); MEAN CORPUSCULAR HGB CONC 30.3 g/dl (33.0-37.0); MEAN PLATELET VOLUME 12.2 fl (9.6-12.3); MONO # 0.8 10*3/uL (0.1-1.0); MONO % 6.5 % (3.0-9.0); NEUT % 73.2 % (47.0-73.0); PLATELET COUNT AUTOMATED 251 10*3/uL (130-400); RED BLOOD COUNT 4.53 10*6/uL (4.10-5.10); RED CELL DISTRI WIDTH 13.7 % (0-14.5); WHITE BLOOD COUNT 12.3 10*3/uL (4.8-10.8)
[2017-08-17 07:12] LABS: BUN 20 mg/dl (7-24); SODIUM 159 mmol/L (136-145)
[2017-08-17 07:18] LABS: POTASSIUM 3.5 mmol/L (3.5-5.1)
[2017-08-17 07:21] LABS: CHLORIDE 130 mmol/L (98-107)
[2017-08-17 08:00] VITALS: BP 133/64
[2017-08-17 12:00] VITALS: BP 156/65
[2017-08-17 16:00] VITALS: BP 158/73
[2017-08-17 17:20] LABS: BUN 15 mg/dl (7-24); CHLORIDE 126 mmol/L (98-107); CREATININE 0.85 mg/dL (0.55-1.02); POTASSIUM 3.7 mmol/L (3.5-5.1); SODIUM 155 mmol/L (136-145)
[2017-08-17 20:00] VITALS: BP 130/55
[2017-08-17 23:02] LABS: BUN 13 mg/dl (7-24); CHLORIDE 125 mmol/L (98-107); CREATININE 0.95 mg/dL (0.55-1.02); POTASSIUM 4.2 mmol/L (3.5-5.1); SODIUM 155 mmol/L (136-145)
[2017-08-18] VITALS: BP 107/50
[2017-08-18 07:17] LABS: BASO % 0.3 % (0.0-1.0); EOS # 0.4 10*3/uL (0.0-0.4); EOS % 3.4 % (1.0-4.0); HEMATOCRIT 47.5 % (37.0-47.0); HEMOGLOBIN 14.7 g/dl (12.0-16.0); LYMPH # 2.3 10*3/uL (1.3-4.4); LYMPH % 19.9 % (27.0-41.0); MEAN CELL VOLUME 99.6 fl (81.0-99.0); MEAN CORPUSCULAR HGB 30.8 pg (27.0-31.0); MEAN CORPUSCULAR HGB CONC 30.9 g/dl (33.0-37.0); MEAN PLATELET VOLUME 11.6 fl (9.6-12.3); MONO # 0.7 10*3/uL (0.1-1.0); MONO % 6.5 % (3.0-9.0); NEUT % 69.5 % (47.0-73.0); PLATELET COUNT AUTOMATED 223 10*3/uL (130-400); RED BLOOD COUNT 4.77 10*6/uL (4.10-5.10); RED CELL DISTRI WIDTH 13.5 % (0-14.5); WHITE BLOOD COUNT 11.4 10*3/uL (4.8-10.8)
[2017-08-18 07:47] LABS: BUN 11 mg/dl (7-24); CHLORIDE 118 mmol/L (98-107); CREATININE 0.95 mg/dL (0.55-1.02); SODIUM 153 mmol/L (136-145)
[2017-08-18 07:59] LABS: POTASSIUM 3.2 mmol/L (3.5-5.1)
[2017-08-18 08:00] VITALS: BP 129/56
[2017-08-18 12:00] VITALS: BP 130/62
[2017-08-18 16:00] VITALS: BP 127/68
[2017-08-18 20:00] VITALS: BP 127/68
[2017-08-19] VITALS (7 sets, daily range): BP systolic 85–111; BP diastolic 33–66
[2017-08-19 06:59] LABS: BUN 7 mg/dl (7-24); CHLORIDE 115 mmol/L (98-107); CREATININE 0.84 mg/dL (0.55-1.02); SODIUM 147 mmol/L (136-145)
[2017-08-19 07:14] LABS: POTASSIUM 5.1 mmol/L (3.5-5.1)
[2017-08-20] VITALS: BP 104/49
[2017-08-20 00:11] VITALS: BP 106/52
[2017-08-20 06:54] LABS: BUN 7 mg/dl (7-24); CHLORIDE 113 mmol/L (98-107); CREATININE 0.86 mg/dL (0.55-1.02); SODIUM 144 mmol/L (136-145)
[2017-08-20 08:00] VITALS: BP 104/70
[2017-08-20 11:28] LABS: BUN 6 mg/dl (7-24); CHLORIDE 109 mmol/L (98-107); CREATININE 1.01 mg/dL (0.55-1.02); SODIUM 141 mmol/L (136-145)
[2017-08-20 11:35] LABS: POTASSIUM 4.1 mmol/L (3.5-5.1)
[2017-08-20 12:00] VITALS: BP 106/61
[2017-08-20 16:00] VITALS: BP 97/51
[2017-08-20 20:00] VITALS: BP 123/55
[2017-08-21] VITALS: BP 118/64
[2017-08-21 06:43] LABS: BUN 8 mg/dl (7-24); CHLORIDE 114 mmol/L (98-107); CREATININE 0.85 mg/dL (0.55-1.02); POTASSIUM 4.9 mmol/L (3.5-5.1); SODIUM 145 mmol/L (136-145)
[2017-08-21 08:00] VITALS: BP 104/70
[2017-08-21 12:00] VITALS: BP 106/72
[2017-08-21 16:00] VITALS: BP 103/54
[2017-08-21 20:00] VITALS: BP 113/81
[2017-08-22] VITALS: BP 111/51
[2017-08-22 06:57] LABS: BASO # 0.1 10*3/uL (0.0-0.1); BASO % 0.5 % (0.0-1.0); EOS # 0.2 10*3/uL (0.0-0.4); EOS % 1.8 % (1.0-4.0); HEMATOCRIT 42.7 % (37.0-47.0); HEMOGLOBIN 13.8 g/dl (12.0-16.0); LYMPH # 2.3 10*3/uL (1.3-4.4); LYMPH % 17.7 % (27.0-41.0); MEAN CELL VOLUME 95.5 fl (81.0-99.0); MEAN CORPUSCULAR HGB 30.9 pg (27.0-31.0); MEAN CORPUSCULAR HGB CONC 32.3 g/dl (33.0-37.0); MONO # 0.9 10*3/uL (0.1-1.0); MONO % 7.2 % (3.0-9.0); NEUT # 9.3 10*3/uL (2.3-7.9); NEUT % 72.2 % (47.0-73.0); PLATELET COUNT AUTOMATED 233 10*3/uL (130-400); RED BLOOD COUNT 4.47 10*6/uL (4.10-5.10); RED CELL DISTRI WIDTH 13.8 % (0-14.5); WHITE BLOOD COUNT 12.9 10*3/uL (4.8-10.8)
[2017-08-22 07:11] LABS: BUN 7 mg/dl (7-24); CHLORIDE 110 mmol/L (98-107); CREATININE 0.81 mg/dL (0.55-1.02); POTASSIUM 4.1 mmol/L (3.5-5.1); SODIUM 143 mmol/L (136-145)
[2017-08-22 08:00] VITALS: BP 102/78
[2017-08-22 11:57] VITALS: BP 125/55
[2017-08-22 16:00] VITALS: BP 125/42
[2017-08-22 20:00] VITALS: BP 112/64
[2017-08-23] VITALS: BP 119/72
[2017-08-23 08:00] VITALS: BP 137/53
[2017-08-23 12:00] VITALS: BP 136/57
[2017-08-23] MEDS ORDERED: SEPTDS PO (15:25)
[2017-08-23] MEDS ORDERED: CALCIUM CARBON200 MG PO (15:25)
[2017-08-23] MEDS ORDERED: KEFLEX500 M1 PO (15:25)
[2017-08-23 16:00] VITALS: BP 111/53
[2017-08-23 20:00] VITALS: BP 119/56
[2017-08-24] VITALS: BP 119/55
[2017-08-24 06:10] LABS: BASO # 0.1 10*3/uL (0.0-0.1); BASO % 0.6 % (0.0-1.0); EOS # 0.2 10*3/uL (0.0-0.4); HEMATOCRIT 42.8 % (37.0-47.0); HEMOGLOBIN 13.9 g/dl (12.0-16.0); LYMPH % 23.6 % (27.0-41.0); MEAN CELL VOLUME 96.4 fl (81.0-99.0); MEAN CORPUSCULAR HGB 31.3 pg (27.0-31.0); MEAN CORPUSCULAR HGB CONC 32.5 g/dl (33.0-37.0); MEAN PLATELET VOLUME 11.5 fl (9.6-12.3); MONO # 0.8 10*3/uL (0.1-1.0); MONO % 9.8 % (3.0-9.0); NEUT # 5.3 10*3/uL (2.3-7.9); NEUT % 63.6 % (47.0-73.0); PLATELET COUNT AUTOMATED 204 10*3/uL (130-400); RED BLOOD COUNT 4.44 10*6/uL (4.10-5.10); WHITE BLOOD COUNT 8.3 10*3/uL (4.8-10.8)
[2017-08-24 06:12] LABS: BUN 9 mg/dl (7-24); CHLORIDE 112 mmol/L (98-107); CREATININE 0.88 mg/dL (0.55-1.02); SODIUM 146 mmol/L (136-145)
[2017-08-24 06:14] LABS: VANCOMYCIN TROUGH 14.4 ug/mL (10-20)
[2017-08-24 08:00] VITALS: BP 110/73
[2017-08-24 12:00] VITALS: BP 143/64
== END 2017-08-24 13:22 | disposition other institution (70) | DRG 871 ==
LOC: ED 10:30 → 4E 12:12 → EDHOLD 12:12 → EDBEDREQ 12:26 → 4E 12:27
PROVIDERS: Emergency Medicine; Hospitalist; Internal Medicine; Internal Medicine Nephrology; Student in an Organized Health Care Education/Training Program
DX: A41.9 Sepsis, unspecified organism (principal); G93.41 Metabolic encephalopathy; L89.311 Pressure ulcer of right buttock, stage 1; E87.0 Hyperosmolality and hypernatremia; E87.8 Other disorders of electrolyte and fluid balance, not elsewhere classified; F03.91 Unspecified dementia, unspecified severity, with behavioral disturbance; I50.32 Chronic diastolic (congestive) heart failure; I27.20 Pulmonary hypertension, unspecified; N39.0 Urinary tract infection, site not specified; R74.0 Nonspecific elevation of levels of transaminase and lactic acid dehydrogenase [LDH]; E55.9 Vitamin D deficiency, unspecified; B95.62 Methicillin resistant Staphylococcus aureus infection as the cause of diseases classified elsewhere; B96.4 Proteus (mirabilis) (morganii) as the cause of diseases classified elsewhere; E78.5 Hyperlipidemia, unspecified; E03.9 Hypothyroidism, unspecified; E86.0 Dehydration; D72.810 Lymphocytopenia; D72.821 Monocytosis (symptomatic); R73.9 Hyperglycemia, unspecified; E66.3 Overweight; Z66 Do not resuscitate; N18.3 Chronic kidney disease, stage 3 (moderate); Z68.26 Body mass index [BMI] 26.0-26.9, adult; Z79.01 Long term (current) use of anticoagulants; Z79.82 Long term (current) use of aspirin; Z79.899 Other long term (current) drug therapy; Z86.718 Personal history of other venous thrombosis and embolism; Z86.711 Personal history of pulmonary embolism; Z88.5 Allergy status to narcotic agent

== ENCOUNTER 2017-08-29 14:31 | Inpatient (IN) | payer MEDICARE, OTHER ==
[~2017-08-29] VITALS: Ht 167.6 cm; Wt 76.7 kg
--- NOTE | ~2017-08-29 | O ---
[place], [place] OPERATIVE NOTE NAME: HARJEET ENRIQUEZ UNIT #: [id number] ROOM: 509 DOCTOR: TIERRA LARSONSHAUNA BIRTHDATE: [birth year] DOS: 09/01/2017 GASTROENDOSCOPIC REPORT HISTORY OF PRESENT ILLNESS: A 77-year-old patient who presented with advanced dementia, neurogenic dysphagia, not eating, protein calorie malnutrition. The patient's laboratory results have been reviewed. H and H of 13 and 43 has been noticed. Chest x-ray was done because of leukocytosis, normal PA and lateral, or CT scan of the head was done, no acute intracranial findings was noticed. Small vessel disease expected seen. Serum ammonia level was less than 10. PAST MEDICAL HISTORY: Associated pulmonary embolism, DVT, dementia, chronic kidney disease, congestive heart failure, hypertension. PAST SURGICAL HISTORY: Filter inferior vena cava, bunionectomy, D and C. SOCIAL HISTORY: Nonsmoker, nonalcohol consumer. ALLERGIES: CODEINE. MEDICATION: Medications list has been reviewed. FAMILY HISTORY: Noncontributory. PROCEDURE: Today's procedure part of investigation is EGD plus PEG tube placement. PREMEDICATION: Versed and Diprivan. SCOPE: Olympus forward-viewing gastroscope Q10 video. REPORT: After putting the patient in supine position, scope was introduced. Thereafter, under direct visualization, advanced through the length of esophagus into gastric pouch into duodenal bulb. Patency of duodenal bulb was ascertained and anterior abdominal wall, aseptically prepped. A best transillumination sign was demonstrated on subxiphoid left leaning and 5 cm infracostal. Adipose tissue deposit of the abdomen appears to be thick and therefore it was assured that the tip of the needle was intragastrically was demonstrated. At this stage 2 mL of Xylocaine was injected and the needle was substituted with trocar, guidewire was advanced through the center of which was grasped from inside with forceps orally extracted. Gastrostomy tube Spanish 20 was anchored to it have orally pulled. The tube was tinged with Neosporin ointment. Position in the anterior abdominal wall. Anchors placed, patency checked tolerated procedure well. IMPRESSION: Percutaneous endoscopic gastrostomy for neurogenic dysphagia and gastritis. PLAN AND DISCUSSION: The tube is utilizable for all her medications from this moment as well as for feedings start at midnight. We are going to use Nepro at [place], [place] OPERATIVE NOTE NAME: HARJEET ENRIQUEZ UNIT #: [id number] ROOM: [facility] DOCTOR: TIERRA LARSON,SHAUNA BIRTHDATE: [birth year] 20 mL per hour until tomorrow. Tomorrow we are going to increase Nepro to 30 mL per hour and we are going to have flush of water H2O 30 mL q.3h. and readjustment as we go along. SHAUNA MAYORGA MD CM:OPRECORD:OPERATIVE NOTE 1714 18 SHAUNA MAYORGA MD 09/01/172018 interface
[~2017-08-29 14:31] MED LIST changes: +8 HOUR650 MG PO; +CALCIUM CARBON200 MG PO; +CEFTRIAXON1 GM/50 ML IM; +ELIQUIS5 M1 PEG; +GENERLAC10 GM/15 M PEG; +HYDROXYZINE HCL IM; +HYDROXYZINE PAM25 MG IM; +KEFLEX500 M1 PO; +KENALOG 0.1%80 GM T; +LIPITOR10 MG PEG; -LIPITOR10 MG PO; +LIQUACEL PO; +METOPROLOL SUCC50 M1 PO; +OYSTER SHELL C1 EAC1 PO; +QUETIAPINE FUM100 M1 PEG; -QUETIAPINE FUM100 M1 PO; +SEPTDS PO; -SYNTHROID,LEVO50 MCG PO; +Synthroid,Levo50 MCG PEG; +VITAMIN D31000 UNI1 PEG; -VITAMIN D31000 UNI1 PO
[2017-08-29 14:33] VITALS: BP 106/59
[2017-08-29 15:27] LABS: CREATININE 1.27 mg/dL (0.55-1.02); TOTAL PROTEIN 7.2 gm/dL (6.4-8.2)
[2017-08-29 15:31] LABS: BILIRUBIN 1+ (NEGATIVE); BLOOD 1+ (NEGATIVE); CLARITY SL CLOUDY (CLEAR); COLOR YELLOW (YELLOW); GLUCOSE NEGATIVE (NEGATIVE); KETONE 1+ (NEGATIVE); LEUKO ESTERASE NEGATIVE (NEGATIVE); NITRITE NEGATIVE (NEGATIVE); PH 5.5 (5.0-9.0); SPECIFIC GRAVITY >= 1.030 (1.005-1.030); UROBILINOGEN 0.2 E.U./dl (0.2-1.0)
[2017-08-29 15:39] LABS: CALCIUM OXALATE CRYSTALS 1+; MUCOUS 1+
[2017-08-29 16:20] VITALS: BP 115/51
[2017-08-29 17:50] VITALS: BP 122/51
[2017-08-29 20:00] VITALS: BP 101/50
[2017-08-30] VITALS: BP 124/68
[2017-08-30 05:50] LABS: BASO # 0.1 10*3/uL (0.0-0.1); BASO % 0.5 % (0.0-1.0); EOS # 0.3 10*3/uL (0.0-0.4); EOS % 2.1 % (1.0-4.0); HEMATOCRIT 43.3 % (37.0-47.0); HEMOGLOBIN 13.1 g/dl (12.0-16.0); LYMPH # 2.4 10*3/uL (1.3-4.4); LYMPH % 18.8 % (27.0-41.0); MEAN CELL VOLUME 100.7 fl (81.0-99.0); MEAN CORPUSCULAR HGB 30.5 pg (27.0-31.0); MEAN CORPUSCULAR HGB CONC 30.3 g/dl (33.0-37.0); MEAN PLATELET VOLUME 11.3 fl (9.6-12.3); MONO # 0.9 10*3/uL (0.1-1.0); MONO % 6.7 % (3.0-9.0); NEUT % 71.4 % (47.0-73.0); PLATELET COUNT AUTOMATED 262 10*3/uL (130-400); RED CELL DISTRI WIDTH 14.6 % (0-14.5); WHITE BLOOD COUNT 12.7 10*3/uL (4.8-10.8)
[2017-08-30 06:15] LABS: CREATININE 1.1 mg/dL (0.55-1.02); PHOSPHOROUS 2.5 mg/dL (2.5-4.9); POTASSIUM 4.1 mmol/L (3.5-5.1)
[2017-08-30 08:00] VITALS: BP 128/73
[2017-08-30 12:00] VITALS: BP 136/76
[2017-08-30 16:00] VITALS: BP 128/72
[2017-08-30 20:00] VITALS: BP 128/89
[2017-08-31] VITALS: BP 109/51
[2017-08-31 06:49] LABS: BASO # 0.1 10*3/uL (0.0-0.1); BASO % 0.5 % (0.0-1.0); EOS # 0.5 10*3/uL (0.0-0.4); EOS % 4.7 % (1.0-4.0); HEMATOCRIT 42.5 % (37.0-47.0); HEMOGLOBIN 13.1 g/dl (12.0-16.0); LYMPH # 2.1 10*3/uL (1.3-4.4); LYMPH % 20.4 % (27.0-41.0); MEAN CELL VOLUME 98.2 fl (81.0-99.0); MEAN CORPUSCULAR HGB 30.3 pg (27.0-31.0); MEAN CORPUSCULAR HGB CONC 30.8 g/dl (33.0-37.0); MEAN PLATELET VOLUME 11.1 fl (9.6-12.3); MONO # 0.8 10*3/uL (0.1-1.0); MONO % 7.6 % (3.0-9.0); NEUT # 6.9 10*3/uL (2.3-7.9); NEUT % 66.5 % (47.0-73.0); PLATELET COUNT AUTOMATED 249 10*3/uL (130-400); RED BLOOD COUNT 4.33 10*6/uL (4.10-5.10); RED CELL DISTRI WIDTH 14.2 % (0-14.5); WHITE BLOOD COUNT 10.4 10*3/uL (4.8-10.8)
[2017-08-31 07:33] LABS: ALBUMIN 2.8 gm/dl (3.1-4.5); BUN 18 mg/dl (7-24); CHLORIDE 117 mmol/L (98-107); POTASSIUM 3.5 mmol/L (3.5-5.1); SODIUM 149 mmol/L (136-145)
[2017-08-31 07:34] LABS: CREATININE 0.94 mg/dL (0.55-1.02); PHOSPHOROUS 2.5 mg/dL (2.5-4.9)
[2017-08-31 08:00] VITALS: BP 106/50
[2017-08-31 12:00] VITALS: BP 112/42
[2017-08-31 16:00] VITALS: BP 108/60
[2017-08-31 20:00] VITALS: BP 116/50
[2017-09-01] VITALS (8 sets, daily range): BP systolic 90–115; BP diastolic 43–64
[2017-09-01] MEDS ORDERED: ACETAMINOPHEN325 M2 PEG (02:46)
[2017-09-01] MEDS ORDERED: FLUVOXAMINE PEG (02:49)
[2017-09-01] MEDS ORDERED: HYDROXYZINE HCL25 MG PEG (02:51)
[2017-09-01] MEDS ORDERED: MEMANTINE HCL10 MG PEG (02:54)
[2017-09-01] MEDS ORDERED: METOPROLOL SUCC25 M2 PO (02:55)
[2017-09-01] MEDS ORDERED: NATURE'S BLEND500 M6 PEG (02:59)
[2017-09-01 06:38] LABS: BASO % 0.4 % (0.0-1.0); EOS # 0.4 10*3/uL (0.0-0.4); EOS % 3.9 % (1.0-4.0); HEMATOCRIT 43.3 % (37.0-47.0); HEMOGLOBIN 13.8 g/dl (12.0-16.0); LYMPH # 2.6 10*3/uL (1.3-4.4); LYMPH % 23.9 % (27.0-41.0); MEAN CELL VOLUME 95.4 fl (81.0-99.0); MEAN CORPUSCULAR HGB 30.4 pg (27.0-31.0); MEAN CORPUSCULAR HGB CONC 31.9 g/dl (33.0-37.0); MEAN PLATELET VOLUME 11.4 fl (9.6-12.3); MONO # 0.8 10*3/uL (0.1-1.0); MONO % 7.6 % (3.0-9.0); NEUT # 6.9 10*3/uL (2.3-7.9); NEUT % 63.9 % (47.0-73.0); PLATELET COUNT AUTOMATED 248 10*3/uL (130-400); RED BLOOD COUNT 4.54 10*6/uL (4.10-5.10); RED CELL DISTRI WIDTH 13.7 % (0-14.5); WHITE BLOOD COUNT 10.7 10*3/uL (4.8-10.8)
[2017-09-01 06:53] LABS: ALBUMIN 2.3 gm/dl (3.1-4.5); ALKALINE PHOSPHATASE 107 U/L (45-117); BUN 14 mg/dl (7-24); CHLORIDE 113 mmol/L (98-107); CREATININE 0.83 mg/dL (0.55-1.02); PHOSPHOROUS 2.3 mg/dL (2.5-4.9); POTASSIUM 3.7 mmol/L (3.5-5.1); SGOT/AST 26 IU/L (3-35); SGPT/ALT 25 U/L (12-78); SODIUM 144 mmol/L (136-145); TOTAL PROTEIN 5.8 gm/dL (6.4-8.2)
[2017-09-02] VITALS: BP 98/48
[2017-09-02 07:07] LABS: BUN 7 mg/dl (7-24); CHLORIDE 111 mmol/L (98-107); CREATININE 0.78 mg/dL (0.55-1.02); PHOSPHOROUS 3.5 mg/dL (2.5-4.9); POTASSIUM 3.8 mmol/L (3.5-5.1); SODIUM 143 mmol/L (136-145)
[2017-09-02 08:00] VITALS: BP 122/60
[2017-09-02 08:53] LABS: BASO % 0.2 % (0.0-1.0); EOS # 0.2 10*3/uL (0.0-0.4); EOS % 1.4 % (1.0-4.0); HEMATOCRIT 43.7 % (37.0-47.0); HEMOGLOBIN 13.6 g/dl (12.0-16.0); LYMPH # 1.4 10*3/uL (1.3-4.4); LYMPH % 9.9 % (27.0-41.0); MEAN CELL VOLUME 96.7 fl (81.0-99.0); MEAN CORPUSCULAR HGB 30.1 pg (27.0-31.0); MEAN CORPUSCULAR HGB CONC 31.1 g/dl (33.0-37.0); MONO # 0.9 10*3/uL (0.1-1.0); MONO % 6.2 % (3.0-9.0); NEUT # 11.4 10*3/uL (2.3-7.9); NEUT % 81.9 % (47.0-73.0); PLATELET COUNT AUTOMATED 217 10*3/uL (130-400); RED BLOOD COUNT 4.52 10*6/uL (4.10-5.10); RED CELL DISTRI WIDTH 13.9 % (0-14.5); WHITE BLOOD COUNT 13.9 10*3/uL (4.8-10.8)
[2017-09-02 12:00] VITALS: BP 100/60
[2017-09-02 16:00] VITALS: BP 106/69
[2017-09-02 20:00] VITALS: BP 108/41
[2017-09-03] VITALS: BP 100/48
[2017-09-03 07:28] LABS: BUN 9 mg/dl (7-24); CHLORIDE 111 mmol/L (98-107); CREATININE 0.78 mg/dL (0.55-1.02); PHOSPHOROUS 2.9 mg/dL (2.5-4.9); SODIUM 141 mmol/L (136-145)
[2017-09-03 08:00] VITALS: BP 156/59
[2017-09-03 12:00] VITALS: BP 120/50
[2017-09-03 15:53] LABS: ABG BASE EXCESS -0.9 mmol/L (-2.0-2.0); ABG HCO3 21.2 mmol/l (22-26); ABG O2 SATURATION 96.7 % (95-97); ARTERIAL BLOOD GAS PCO2 28.3 mmHg (35-45); ARTERIAL BLOOD GAS PH 7.485 (7.35-7.45)
[2017-09-03 16:00] VITALS: BP 111/41
[2017-09-03 20:00] VITALS: BP 116/54
[2017-09-04] VITALS: BP 116/54
[2017-09-04 06:32] LABS: BASO % 0.3 % (0.0-1.0); EOS # 0.3 10*3/uL (0.0-0.4); EOS % 2.8 % (1.0-4.0); HEMATOCRIT 41.7 % (37.0-47.0); HEMOGLOBIN 13.2 g/dl (12.0-16.0); LYMPH # 1.1 10*3/uL (1.3-4.4); MEAN CELL VOLUME 95.9 fl (81.0-99.0); MEAN CORPUSCULAR HGB 30.3 pg (27.0-31.0); MEAN CORPUSCULAR HGB CONC 31.7 g/dl (33.0-37.0); MEAN PLATELET VOLUME 11.8 fl (9.6-12.3); MONO # 0.8 10*3/uL (0.1-1.0); NEUT # 7.8 10*3/uL (2.3-7.9); NEUT % 77.4 % (47.0-73.0); PLATELET COUNT AUTOMATED 223 10*3/uL (130-400); RED BLOOD COUNT 4.35 10*6/uL (4.10-5.10); RED CELL DISTRI WIDTH 14.1 % (0-14.5); WHITE BLOOD COUNT 10.1 10*3/uL (4.8-10.8)
[2017-09-04 07:01] LABS: ALBUMIN 2.1 gm/dl (3.1-4.5); ALKALINE PHOSPHATASE 130 U/L (45-117); BUN 11 mg/dl (7-24); CHLORIDE 111 mmol/L (98-107); CREATININE 0.67 mg/dL (0.55-1.02); PHOSPHOROUS 2.2 mg/dL (2.5-4.9); SGOT/AST 25 IU/L (3-35); SGPT/ALT 20 U/L (12-78); SODIUM 144 mmol/L (136-145)
[2017-09-04 07:18] LABS: POTASSIUM 3.2 mmol/L (3.5-5.1)
[2017-09-04 08:00] VITALS: BP 123/58
[2017-09-04 12:00] VITALS: BP 124/53
[2017-09-04 16:00] VITALS: BP 127/56
[2017-09-04 20:00] VITALS: BP 135/54
[2017-09-05] VITALS: BP 109/61
[2017-09-05 08:00] VITALS: BP 122/55
[2017-09-05 08:39] LABS: BASO % 0.3 % (0.0-1.0); EOS # 0.4 10*3/uL (0.0-0.4); EOS % 4.4 % (1.0-4.0); HEMATOCRIT 40.3 % (37.0-47.0); LYMPH # 1.3 10*3/uL (1.3-4.4); LYMPH % 13.6 % (27.0-41.0); MEAN CORPUSCULAR HGB 30.7 pg (27.0-31.0); MEAN CORPUSCULAR HGB CONC 32.3 g/dl (33.0-37.0); MEAN PLATELET VOLUME 11.7 fl (9.6-12.3); MONO # 0.8 10*3/uL (0.1-1.0); MONO % 8.4 % (3.0-9.0); NEUT # 6.8 10*3/uL (2.3-7.9); NEUT % 72.9 % (47.0-73.0); PLATELET COUNT AUTOMATED 208 10*3/uL (130-400); RED BLOOD COUNT 4.24 10*6/uL (4.10-5.10); RED CELL DISTRI WIDTH 14.4 % (0-14.5); WHITE BLOOD COUNT 9.3 10*3/uL (4.8-10.8)
[2017-09-05 08:56] LABS: ALKALINE PHOSPHATASE 131 U/L (45-117); BUN 13 mg/dl (7-24); CHLORIDE 110 mmol/L (98-107); CREATININE 0.64 mg/dL (0.55-1.02); SGOT/AST 35 IU/L (3-35); SGPT/ALT 27 U/L (12-78); SODIUM 143 mmol/L (136-145); TOTAL PROTEIN 5.9 gm/dL (6.4-8.2)
[2017-09-05 12:00] VITALS: BP 107/57
[2017-09-05] MEDS ORDERED: WATER3780 ML PEG (15:05)
[2017-09-05] MEDS ORDERED: NUTREN 2.0250 ML PEG (15:05)
[2017-09-05] MEDS ORDERED: LOPRESSOR25 MG PEG (15:05)
[2017-09-05 16:00] VITALS: BP 114/40
== END 2017-09-05 18:04 | disposition other institution (70) | DRG 682 ==
LOC: ED 14:31 → EDHOLD 16:52 → 5E 16:52
PROVIDERS: Emergency Medicine; Internal Medicine; Internal Medicine Nephrology; Student in an Organized Health Care Education/Training Program
PROC: 0DH63UZ Insertion of Feeding Device into Stomach, Percutaneous Approach (ICD-10-PCS; principal; 2017-09-01)
DX: N17.0 Acute kidney failure with tubular necrosis (principal); G93.41 Metabolic encephalopathy; E87.0 Hyperosmolality and hypernatremia; E44.0 Moderate protein-calorie malnutrition; E83.41 Hypermagnesemia; E87.8 Other disorders of electrolyte and fluid balance, not elsewhere classified; I07.1 Rheumatic tricuspid insufficiency; I50.32 Chronic diastolic (congestive) heart failure; Z66 Do not resuscitate; Z51.5 Encounter for palliative care; R13.19 Other dysphagia; I27.20 Pulmonary hypertension, unspecified; E86.0 Dehydration; E87.6 Hypokalemia; E78.5 Hyperlipidemia, unspecified; E03.9 Hypothyroidism, unspecified; R74.0 Nonspecific elevation of levels of transaminase and lactic acid dehydrogenase [LDH]; K29.70 Gastritis, unspecified, without bleeding; G30.9 Alzheimer's disease, unspecified; F02.80 Dementia in other diseases classified elsewhere, unspecified severity, without behavioral disturbance, psychotic disturbance, mood disturbance, and anxiety; D72.829 Elevated white blood cell count, unspecified; N18.9 Chronic kidney disease, unspecified; Z88.5 Allergy status to narcotic agent; Z86.718 Personal history of other venous thrombosis and embolism; Z91.81 History of falling; Z86.711 Personal history of pulmonary embolism; Z87.440 Personal history of urinary (tract) infections; Z80.9 Family history of malignant neoplasm, unspecified; Z79.899 Other long term (current) drug therapy; Z68.26 Body mass index [BMI] 26.0-26.9, adult

== ENCOUNTER 2017-11-24 08:34 | Emergency (ER) | payer MEDICARE, OTHER ==
[~2017-11-24] VITALS: Wt 77.1 kg
[~2017-11-24 08:34] MED LIST changes: +ACETAMINOPHEN325 M2 PEG; +FLUVOXAMINE PEG; +HYDROXYZINE HCL25 MG PEG; +LOPRESSOR25 MG PEG; +MEMANTINE HCL10 MG PEG; +METOPROLOL SUCC25 M2 PO; +NATURE'S BLEND500 M6 PEG; +NUTREN 2.0250 ML PEG; +WATER3780 ML PEG
[2017-11-24 09:08] LABS: BASO % 0.3 % (0.0-1.0); EOS # 0.3 10*3/uL (0.0-0.4); EOS % 2.4 % (1.0-4.0); HEMATOCRIT 42.7 % (37.0-47.0); HEMOGLOBIN 13.5 g/dl (12.0-16.0); LYMPH # 2.9 10*3/uL (1.3-4.4); LYMPH % 24.5 % (27.0-41.0); MEAN CORPUSCULAR HGB 29.4 pg (27.0-31.0); MEAN CORPUSCULAR HGB CONC 31.6 g/dl (33.0-37.0); MEAN PLATELET VOLUME 11.2 fl (9.6-12.3); MONO # 1.1 10*3/uL (0.1-1.0); MONO % 9.1 % (3.0-9.0); NEUT # 7.4 10*3/uL (2.3-7.9); NEUT % 63.5 % (47.0-73.0); PLATELET COUNT AUTOMATED 247 10*3/uL (130-400); RED BLOOD COUNT 4.59 10*6/uL (4.10-5.10); RED CELL DISTRI WIDTH 14.5 % (0-14.5); WHITE BLOOD COUNT 11.7 10*3/uL (4.8-10.8)
[2017-11-24 09:23] LABS: ALBUMIN 2.6 gm/dl (3.1-4.5); ALKALINE PHOSPHATASE 112 U/L (45-117); BUN 19 mg/dl (7-24); CHLORIDE 110 mmol/L (98-107); CREATININE 0.84 mg/dL (0.55-1.02); POTASSIUM 4.3 mmol/L (3.5-5.1); SGOT/AST 16 IU/L (3-35); SGPT/ALT 24 U/L (12-78); SODIUM 143 mmol/L (136-145)
[2017-11-24 09:23] LABS: BILIRUBIN NEGATIVE (NEGATIVE); BLOOD NEGATIVE (NEGATIVE); CLARITY SL CLOUDY (CLEAR); COLOR YELLOW (YELLOW); GLUCOSE NEGATIVE (NEGATIVE); KETONE NEGATIVE (NEGATIVE); LEUKO ESTERASE 3+ (NEGATIVE); NITRITE NEGATIVE (NEGATIVE); UROBILINOGEN 0.2 E.U./dl (0.2-1.0)
[2017-11-24 09:30] LABS: BACTERIA 1+; EPITHELIAL CELLS 16-20; WBC 31-40 wbc/hpf (0-5)
[2017-11-24] MEDS ORDERED: LEVOFLOXACIN500 MG PO (10:22)
[2017-11-24] MEDS ORDERED: LEVAQUIN250 M1 PO (10:23)
[2018-01-18] MEDS ORDERED: ATIVAN0.5 MG PO (15:04)
[2018-01-18] MEDS ORDERED: DEPAKOTE SPRIN125 MG PO (15:04)
[2018-01-18] MEDS ORDERED: NYST SUSP PO (15:07)
[2018-01-18] MEDS ORDERED: RISPERDAL0.25 MG PO (15:08)
[2018-01-22] MEDS ORDERED: PANTOPRAZOLE SO20 MG PO (12:41)
[2018-01-22] MEDS ORDERED: AMINOPHYLLIN200 MG PO (12:41)
[2018-01-22] MEDS ORDERED: ATIVAN0.5 MG PO (12:41)
[2018-01-22] MEDS ORDERED: LACTULOSE20 GM/30 M PEG (12:41)
== END 2017-11-24 10:40 | disposition home or self-care (01) ==
LOC: ED 08:34
PROVIDERS: Emergency Medicine
DX: N39.0 Urinary tract infection, site not specified (principal); I13.0 Hypertensive heart and chronic kidney disease with heart failure and stage 1 through stage 4 chronic kidney disease, or unspecified chronic kidney disease; N18.9 Chronic kidney disease, unspecified; I50.32 Chronic diastolic (congestive) heart failure; E78.5 Hyperlipidemia, unspecified; Z86.718 Personal history of other venous thrombosis and embolism; Z88.6 Allergy status to analgesic agent; Z79.899 Other long term (current) drug therapy

== ENCOUNTER 2017-12-11 23:45 | Emergency (ER) | payer MEDICARE, OTHER ==
[~2017-12-11] VITALS: Wt 79.4 kg
--- NOTE | ~2017-12-11 | EKG ---
[place], [place] ELECTROCARDIOGRAM REPORT NAME: HARJEET ENRIQUEZ UNIT #: [id number] ROOM: DOCTOR: EPIPHANY DRAFT REPORT BIRTHDATE: [birth year] [facility] Test Date: 2017-12-12 Test Time: 00:24:25 Pat Name: HARJEET ENRIQUEZ Department: ER Room: 2 Gender: F Photocopying Equipment Repairer: : 1940 Requested By: BELLA CHANDLER Order Number: [id number] Reading MD: Antonio Hernandes MD Measurements Intervals [place] Rate: 82 P: 65 KS: 136 QRS: 8 QRSD: 88 T: 46 QT: 392 QTc: 458 Interpretive Statements Sinus rhythm Low voltage, extremity leads Abnormal R-wave progression, late transition Baseline wander in lead(s) V2 Electronically Signed On 12-12-2017 9:43:50 PDT by Antonio Hernandes MD CM:EKGRPT:ELECTROCARDIOGRAM REPORT [id number] BELLA CHANDLER MD EPIPHANY DRAFT REPORT BELLA CHANDLER MD
[~2017-12-11 23:45] MED LIST changes: +LEVAQUIN250 M1 PO; +LEVOFLOXACIN500 MG PO
[2017-12-12 00:25] LABS: BASO % 0.2 % (0.0-1.0); EOS # 0.3 10*3/uL (0.0-0.4); EOS % 2.9 % (1.0-4.0); HEMATOCRIT 40.4 % (37.0-47.0); HEMOGLOBIN 12.6 g/dl (12.0-16.0); LYMPH # 2.2 10*3/uL (1.3-4.4); LYMPH % 21.9 % (27.0-41.0); MEAN CELL VOLUME 92.9 fl (81.0-99.0); MEAN CORPUSCULAR HGB CONC 31.2 g/dl (33.0-37.0); MEAN PLATELET VOLUME 11.6 fl (9.6-12.3); MONO % 10.1 % (3.0-9.0); NEUT # 6.4 10*3/uL (2.3-7.9); NEUT % 64.6 % (47.0-73.0); PLATELET COUNT AUTOMATED 308 10*3/uL (130-400); RED BLOOD COUNT 4.35 10*6/uL (4.10-5.10); RED CELL DISTRI WIDTH 14.6 % (0-14.5); WHITE BLOOD COUNT 9.9 10*3/uL (4.8-10.8)
[2017-12-12 00:41] LABS: ALBUMIN 2.8 gm/dl (3.1-4.5); ALKALINE PHOSPHATASE 88 U/L (45-117); BUN 18 mg/dl (7-24); CHLORIDE 110 mmol/L (98-107); CPK 26 U/L (26-192); CREATININE 0.68 mg/dL (0.55-1.02); LIPASE 182 U/L (73-393); POTASSIUM 4.3 mmol/L (3.5-5.1); SGOT/AST 14 IU/L (3-35); SGPT/ALT 21 U/L (12-78); SODIUM 143 mmol/L (136-145)
[2017-12-12 00:42] LABS: CKMB 0.8 ng/ml (0.5-3.6); TROPONIN I < 0.015 ng/ml (<0.045)
[2017-12-12 01:46] LABS: BILIRUBIN NEGATIVE (NEGATIVE); BLOOD TRACE-INTACT (NEGATIVE); COLOR YELLOW (YELLOW); GLUCOSE NEGATIVE (NEGATIVE); KETONE NEGATIVE (NEGATIVE); LEUKO ESTERASE 3+ (NEGATIVE); NITRITE NEGATIVE (NEGATIVE); SPECIFIC GRAVITY <= 1.005 (1.005-1.030); UROBILINOGEN 0.2 E.U./dl (0.2-1.0)
[2017-12-12 01:53] LABS: BACTERIA 2+; CLARITY CLOUDY (CLEAR); WBC TNTC wbc/hpf (0-5)
[2017-12-12] MEDS ORDERED: CEPHALEXIN250 MG/5 M PO (02:02)
[2018-01-18] MEDS ORDERED: DEPAKOTE SPRIN125 MG PO (15:04)
[2018-01-18] MEDS ORDERED: ATIVAN0.5 MG PO (15:04)
[2018-01-18] MEDS ORDERED: NYST SUSP PO (15:07)
[2018-01-18] MEDS ORDERED: RISPERDAL0.25 MG PO (15:08)
[2018-01-22] MEDS ORDERED: LACTULOSE20 GM/30 M PEG (12:41)
[2018-01-22] MEDS ORDERED: AMINOPHYLLIN200 MG PO (12:41)
[2018-01-22] MEDS ORDERED: ATIVAN0.5 MG PO (12:41)
[2018-01-22] MEDS ORDERED: PANTOPRAZOLE SO20 MG PO (12:41)
== END 2017-12-12 02:47 | disposition home or self-care (01) ==
LOC: ED 23:45
PROVIDERS: Emergency Medicine
DX: N39.0 Urinary tract infection, site not specified (principal); K94.23 Gastrostomy malfunction; E78.5 Hyperlipidemia, unspecified; E03.9 Hypothyroidism, unspecified; I27.20 Pulmonary hypertension, unspecified; N18.9 Chronic kidney disease, unspecified; I50.32 Chronic diastolic (congestive) heart failure; Z86.718 Personal history of other venous thrombosis and embolism; Z88.6 Allergy status to analgesic agent; Z79.899 Other long term (current) drug therapy

== ENCOUNTER 2018-05-25 19:34 | Inpatient (IN) | payer MEDICARE, OTHER ==
[~2018-05-25] VITALS: Ht 165.1 cm; Wt 82.2 kg
--- NOTE | ~2018-05-25 | CON ---
[place], [place] REPORT OF CONSULTATION NAME: HARJEET ENRIQUEZ UNIT #: [id number] ROOM: 424 DOCTOR: SHAUNA MAYORGA MD BIRTHDATE: [birth year] DOS: 05/28/2018 GASTROENDOSCOPIC CONSULTATION HISTORY OF PRESENT ILLNESS: The patient has presented from senior living, partially aphasic, communication very limited. Apparently, she has had multiple projectile emesis and she has been on 40 mL of Jevity 1.2 per hour and they had to hold the feeding for one shift and restart at 20 again. We have adopted Reglan 5 mg to be added to her regimen from now on to improve her gastric motility. She has already had a PEG tube done that I fixed at the bedside. The site was loose and the dish was adjusted. The old dressing was all removed. There is no specific line of communication, so data relied on nursing information and old chart information. She has had blood cultures done that have been negative. Chest x-ray has been no consolidation or effusion noticed at the initial and then chest x-ray today showed infiltrate, bibasilar with noticed aspiration pneumonia as a possibility. Her lactic acid was normal. Her CBC differential, white blood cell was 16 yesterday and 11.6 today. Comprehensive metabolic panel, BUN and creatinine within normal limits. Electrolytes, dehydration is noticed with sodium of 148, chloride of 116. Magnesium 2.2 and phosphorus 1.8 was noticed. Was at normal saline, changed to D5W 1 bag and then after that gave her half normal saline. She is a diabetic. The phosphate has been replaced. Liver function tests appeared to be normal. Lactic acid 4.8 on 05/26/2018 to 5.8 level elevation and then subsequently 1.7. PAST MEDICAL HISTORY: Associated with pulmonary embolism, hyperlipidemia, hypothyroidism, chronic renal insufficiency, anxiety, congestive heart failure, dysphagia, suspected aspiration, tricuspid regurgitation, diabetes mellitus. PAST SURGICAL HISTORY: Status post PEG, D and C, filter insertion, bunionectomy. SOCIAL HISTORY: Nonsmoker, nonalcohol consumer, residing in a senior living. FAMILY HISTORY: Noncontributory. ALLERGIES: CODEINE. MEDICATIONS: List was reviewed. She is on Unasyn amongst other medications that was reviewed. REVIEW OF SYSTEMS: In general, cannot be obtained from her. PHYSICAL EXAMINATION: VITAL SIGNS: Stable. HEENT: Head normocephalic, nontraumatic. Mouth: Open, dry, and mouth breather. Communication extremely dismal. NECK: Otherwise, neck is hyperextended slightly in the position that is comfortable for her. LUNGS: Rhonchi anteroposteriorly. HEART: Normal sinus rhythm, no gallop, no murmur. [place], [place] REPORT OF CONSULTATION NAME: HARJEET ENRIQUEZ UNIT #: [id number] ROOM: [facility] DOCTOR: SHAUNA MAYORGA MD BIRTHDATE: [birth year] ABDOMEN: Soft. No hepato-organomegaly. Bowel sounds present. Existing PEG was adjusted at the bedside and excess gauze was dispensed with. EXTREMITIES: 1+ edema bilaterally. NEUROLOGIC: Alert and not oriented. Labs reviewed, records reviewed. IMPRESSION: 1. Dementia. 2. Neurogenic dysphagia. 3. Possible aspiration pneumonia. 4. Hyperlipidemia. 5. Hypernatremia. 6. Hyperchloremia. 7. Prerenal azotemia. 8. Hypothyroidism. 9. Congestive heart failure history. 10. Pulmonary hypertension, all has been recognized. OTHER ADJUNCTIVE DIAGNOSES: As outlined in paragraph of past medical and surgical history including protein calorie malnutrition. PLAN AND DISCUSSION: Reduction of the infusion rate, addition of prokinetic 5 mg Reglan every day to see if that would improve the status. Rechecking of retention volume and readjustment of feedings back to 40. SHAUNA MAYORGA MD CM:CONSTR:REPORT OF CONSULTATION 1651 06/20/18 0732 interface
--- NOTE | ~2018-05-25 | EKG ---
[place], [place] ELECTROCARDIOGRAM REPORT NAME: HARJEET ENRIQUEZ UNIT #: [id number] ROOM: 424 DOCTOR: GILDARDO DRAFT REPORT BIRTHDATE: [birth year] [facility] Test Date: 2018-05-25 Test Time: 22:45:55 Pat Name: HARJEET ENRIQUEZ Department: Room: 424 1 Gender: F Banquet Steward: Mica Mccarthy : 1940 Requested By: TUSHAR ANNE Order Number: [id number] Reading MD: Rober Samson MD Measurements Intervals [place] Rate: 99 P: 50 MN: 133 QRS: -7 QRSD: 90 T: 76 QT: 359 QTc: 461 Interpretive Statements Sinus rhythm Inferior infarct, old Consider anterolateral infarct Compared to ECG 12/12/2017 00:24:25 Electronically Signed On 05-29-2018 11:55:25 PST by Rober Samson MD CM:EKGRPT:ELECTROCARDIOGRAM REPORT [id number] TUSHAR ANDRADE DRAFT REPORT TUSHAR ANNE DO
[~2018-05-25 19:34] MED LIST changes: +AMINOPHYLLIN200 MG PO; +ATIVAN0.5 MG PO; +CEPHALEXIN250 MG/5 M PO; +DEPAKOTE SPRIN125 MG PO; +LACTULOSE20 GM/30 M PEG; +NYST SUSP PO; +PANTOPRAZOLE SO20 MG PO; +RISPERDAL0.25 MG PEG
[2018-05-25 19:50] VITALS: BP 95/52
[2018-05-25 20:16] VITALS: BP 102/54
--- NOTE | 2018-05-25 20:40 | NUR ---
PT RESTING IN BED NO SIGN OF DISTRESS AT BEDSIDE, PT PLACED BACK TO NASAL CANNULA AT 2LPM PULSE OX 94% PT IN LOW FOWLERS POSITION BED RAILS UP X 2 CALL RENTERIA IN REACH
[2018-05-25 20:43] VITALS: BP 119/53
--- NOTE | 2018-05-25 21:14 | NUR ---
PT TO BE ADMITTED NOTIFIED [facility] AT [phone] SPOKE WITH EMMANUELLE VEGA HER OF ADMISSION
[2018-05-25 21:27] VITALS: BP 108/64
[2018-05-25 21:34] LABS: HEMATOCRIT 54.6 % (37.0-47.0); HEMOGLOBIN 17.2 g/dl (12.0-16.0); MEAN CELL VOLUME 97.5 fl (81.0-99.0); MEAN CORPUSCULAR HGB 30.7 pg (27.0-31.0); MEAN CORPUSCULAR HGB CONC 31.5 g/dl (33.0-37.0); MEAN PLATELET VOLUME 11.6 fl (9.6-12.3); PLATELET COUNT AUTOMATED 220 10*3/uL (130-400); RED CELL DISTRI WIDTH 14.6 % (0-14.5)
[2018-05-25 21:49] LABS: ALBUMIN 3.5 gm/dl (3.1-4.5); CREATININE 1.12 mg/dL (0.55-1.02); POTASSIUM 4.6 mmol/L (3.5-5.1); TOTAL PROTEIN 8.2 gm/dL (6.4-8.2)
[2018-05-25 21:55] LABS: TOTAL CELLS COUNTED 100 #CELLS
[2018-05-25 21:56] LABS: PLATELET SUFFICIENCY NORMAL (NORMAL)
--- NOTE | 2018-05-25 22:27 | NUR ---
Time: 2229 A 78 year old FEMALE admitted to 4E under services of MARLIN SHERIFF DO. Pt. arrived via stretcher from ER. Chief complaint: SHORTNESS OF BREATH. EMMANUELLE KHAN
--- NOTE | 2018-05-25 22:52 | NUR ---
DR ANNE AND AT BEDSIDE
[2018-05-25 23:00] VITALS: BP 116/46
[2018-05-25] MEDS ORDERED: ATIVAN0.5 MG PEG (23:03)
[2018-05-25] MEDS ORDERED: ATIVAN1 MG PEG (23:04)
[2018-05-25] MEDS ORDERED: BENADRYL ALLERG25 M5 PO (23:05)
[2018-05-25] MEDS ORDERED: CYMBALTA60 MG PO ×2 (23:06)
[2018-05-25] MEDS ORDERED: Ipratropium Brom3 ML INH (23:08)
[2018-05-25] MEDS ORDERED: JEVITY 1 CAL237 ML GT (23:12)
[2018-05-25] MEDS ORDERED: NYSTATIN CREAM15 GM T (23:13)
[2018-05-25] MEDS ORDERED: PREVACID15 M2 PEG (23:14)
[2018-05-25] MEDS ORDERED: ZOFRAN4 MG PEG (23:16)
--- NOTE | 2018-05-25 23:17 | NUR ---
MED REC COMPLETED WITH LIST FROM [facility].
--- NOTE | 2018-05-25 23:37 | NUR ---
ABDOMEN DISTENDED PER . BLADDER SCANNED FOR LESS THAN 50CC URINE IN BLADDER. BRIEF INTACT AND DRY.
--- NOTE | 2018-05-25 23:38 | NUR ---
DR ANNE AWARE OF MED REC BEING COMPLETE
--- NOTE | 2018-05-25 23:41 | NUR ---
DR ANNE AWARE OF LACTIC ACID OF 7.3
[2018-05-26] VITALS: BP 105/83
--- NOTE | 2018-05-26 01:50 | NUR ---
DR ANNE CONTACTED REGARDING CRITICAL LACTIC, INCREASING. NEW ORDERS RECEIVED
[2018-05-26 04:03] LABS: HEMOGLOBIN 16.3 g/dl (12.0-16.0); MEAN CELL VOLUME 95.2 fl (81.0-99.0); MEAN CORPUSCULAR HGB CONC 32.6 g/dl (33.0-37.0); MEAN PLATELET VOLUME 11.5 fl (9.6-12.3); PLATELET COUNT AUTOMATED 224 10*3/uL (130-400); RED BLOOD COUNT 5.25 10*6/uL (4.10-5.10); RED CELL DISTRI WIDTH 14.8 % (0-14.5); WHITE BLOOD COUNT 17.8 10*3/uL (4.8-10.8)
[2018-05-26 04:13] LABS: ACT PARTIAL THROMBO TIME 24.3 SECONDS (20.8-31.5)
[2018-05-26 04:25] LABS: ALBUMIN 2.7 gm/dl (3.1-4.5); ALKALINE PHOSPHATASE 104 U/L (45-117); BUN 24 mg/dl (7-24); CHLORIDE 115 mmol/L (98-107); CHOLESTEROL 183 mg/dL (<200); CREATININE 1.05 mg/dL (0.55-1.02); FREE T4 0.97 ng/dl (0.76-1.46); HDL CHOLESTEROL 35 mg/dl (40-60); LDL CHOLESTEROL 125 mg/dL (9-159); POTASSIUM 4.5 mmol/L (3.5-5.1); SGOT/AST 24 IU/L (3-35); SGPT/ALT 31 U/L (12-78); SODIUM 145 mmol/L (136-145); TOTAL PROTEIN 6.9 gm/dL (6.4-8.2); TRIGLYCERIDES 115 mg/dl (<150); VLDL CHOLESTEROL 23 mg/dL (6-40)
[2018-05-26 04:29] LABS: PLATELET SUFFICIENCY NORMAL (NORMAL); TOTAL CELLS COUNTED 100 #CELLS
--- NOTE | 2018-05-26 05:11 | NUR ---
PLACEMENT OF PEG TUBE VERIFIED VIA AIR BOLUS AND AUSCULTATION
--- NOTE | 2018-05-26 06:22 | NUR ---
ATTEMPTED TO CALL DR ANNE REGARDING CRITICAL LACTIC ACID DOWN TO 4.1, NO ANSWER
--- NOTE | 2018-05-26 06:25 | NUR ---
DR ANNE CONTACTED AND INFORMED OF CRITICAL LACTIC, 4.1 BUT TRENDING DOWN. PATIENT CURRENTLY RECEIVING IVF. NO FURTHER ORDERS RECEIVED AT THIS TIME
[2018-05-26 07:16] LABS: VITAMIN D, 25-HYDROXY 29.1 ng/mL (30-100)
[2018-05-26 08:00] VITALS: BP 122/52
--- NOTE | 2018-05-26 08:45 | NUR ---
DR LIYA SUH; NOTIFIED LA 4.8
[2018-05-26 12:00] VITALS: BP 111/48
[2018-05-26 13:02] LABS: BILIRUBIN NEGATIVE (NEGATIVE); BLOOD TRACE-INTACT (NEGATIVE); CLARITY CLEAR (CLEAR); COLOR YELLOW (YELLOW); GLUCOSE NEGATIVE (NEGATIVE); KETONE NEGATIVE (NEGATIVE); LEUKO ESTERASE TRACE (NEGATIVE); NITRITE NEGATIVE (NEGATIVE); PH 5.5 (5.0-9.0); SPECIFIC GRAVITY >= 1.030 (1.005-1.030); UROBILINOGEN 0.2 E.U./dl (0.2-1.0)
[2018-05-26 13:10] LABS: BACTERIA 1+; MUCOUS 1+; WBC 16-20 wbc/hpf (0-5)
[2018-05-26 13:11] LABS: YEAST 1+
--- NOTE | 2018-05-26 14:00 | NUR ---
Shift chart check completed.
[2018-05-26 16:00] VITALS: BP 113/58
[2018-05-26 20:00] VITALS: BP 105/60
--- NOTE | 2018-05-26 21:11 | NUR ---
PATIENT CRYING AND THRASHING IN BED AT THIS TIME, PRN BENADRYL GIVEN THROUGH PEG TUBE AT THIS TIME. ATTEMPTED TO REORIENT PATIENT AT THIS TIME, WILL MONITOR FOR EFFECTIVENESS. BED ALARM INTACT, SIDERAILS UP X2 FOR SAFETY, CALL LIGHT WITHIN REACH.
--- NOTE | 2018-05-26 22:31 | NUR ---
NOTIFIED DR COHEN AT THIS TIME RE: PATIENT STILL CRYING OUT AND RESTLESS AT THIS TIME. INFORMED THAT PRN BENADRYL WAS GIVEN, DR COHEN STATES TO ATTEMPT TO REDIRECT PATIENT AT THIS TIME AND UPDATE HIM ON PATIENT STATUS IN ONE HOUR.
--- NOTE | 2018-05-26 23:20 | NUR ---
PATIENT RESTING IN BED WITH EYES CLOSED AT THIS TIME, APPEARS COMFORTABLE. WILL CONTINUE TO MONITOR PATIENT, BED ALARM INTACT FOR SAFETY, SIDERAILS UP X2 FOR SAFETY, CALL LIGHT WITHIN REACH.
[2018-05-27] VITALS: BP 114/69
[2018-05-27 06:32] LABS: ALBUMIN 2.6 gm/dl (3.1-4.5); ALKALINE PHOSPHATASE 98 U/L (45-117); BUN 18 mg/dl (7-24); CHLORIDE 116 mmol/L (98-107); CREATININE 0.83 mg/dL (0.55-1.02); PHOSPHOROUS 1.8 mg/dL (2.5-4.9); POTASSIUM 4.2 mmol/L (3.5-5.1); SGOT/AST 24 IU/L (3-35); SGPT/ALT 26 U/L (12-78); SODIUM 148 mmol/L (136-145); TOTAL PROTEIN 6.5 gm/dL (6.4-8.2)
[2018-05-27 06:40] LABS: BASO % 0.2 % (0.0-1.0); EOS % 0.1 % (1.0-4.0); HEMATOCRIT 45.3 % (37.0-47.0); LYMPH # 1.6 10*3/uL (1.3-4.4); LYMPH % 9.5 % (27.0-41.0); MEAN CORPUSCULAR HGB 30.9 pg (27.0-31.0); MEAN CORPUSCULAR HGB CONC 31.3 g/dl (33.0-37.0); MEAN PLATELET VOLUME 11.8 fl (9.6-12.3); MONO # 1.4 10*3/uL (0.1-1.0); MONO % 8.6 % (3.0-9.0); NEUT # 13.4 10*3/uL (2.3-7.9); NEUT % 81.3 % (47.0-73.0); PLATELET COUNT AUTOMATED 161 10*3/uL (130-400); RED CELL DISTRI WIDTH 14.9 % (0-14.5); WHITE BLOOD COUNT 16.5 10*3/uL (4.8-10.8)
[2018-05-27 06:42] LABS: HEMOGLOBIN 14.2 g/dl (12.0-16.0); MEAN CELL VOLUME 98.5 fl (81.0-99.0)
[2018-05-27 08:00] VITALS: BP 138/57
[2018-05-27 12:00] VITALS: BP 126/56
[2018-05-27 16:00] VITALS: BP 124/60
--- NOTE | 2018-05-27 19:51 | NUR ---
PATIENT RESTING IN BED WITH TUBE FEED INFUSING WITHOUT DIFFICULTY. PATIENT MOANING AND VISIBLY DISTRESSED. HARSH MOIST COUGH NOTED. PATIENT NONVERBAL. REORIENTED TO TIME AND PLACE. BED IN LOWEST POSITION, BED ALARM ON, CALL LIGHT IN REACH
[2018-05-27 20:00] VITALS: BP 125/60
--- NOTE | 2018-05-27 21:21 | NUR ---
DR COHEN AWARE OF PATIENT CRYING AND ROLLING AROUND THE BED AND ABDOMEN DISTENDED. ALSO MADE AWARE OF WHEN TUBE FEED IS OFF, PATIENT SEEMS MORE RELAXED. STATES TO TURN TUBE FEED OFF AT THIS TIME.
--- NOTE | 2018-05-27 21:50 | NUR ---
ASKED PATIENT IF SHE IS IN PAIN AT THIS TIME. PATIENT STATES "YES". WHEN ASKED WHERE PATIENT MOVED ARMS TO ABDOMOMINAL AREA. THIS RN ASKED PATIENT "DOES YOUR STOMACH HURT?", PATIENT STATES "YES". CRYING OUT IN PAIN AT THIS TIME. MEDICATED WITH TYLENOL PER ORDER
--- NOTE | 2018-05-27 21:54 | NUR ---
PEG TUBE FLUSHED WITH 60CC OF WATER AT THIS TIME. PLACEMENT CHECKED VIA AUSCULTATION AND AIR BOLUS PRIOR TO FLUSH.
--- NOTE | 2018-05-27 23:38 | NUR ---
PATIENT RESTING IN BED MOANING. BLOOD SUGAR CHECK 104. PREVIOUS TYLENOL SEEMS SOMEWHAT EFFECTIVE
[2018-05-28] VITALS: BP 127/64
--- NOTE | 2018-05-28 03:49 | NUR ---
patient resting in bed with no visible distress. respirations regular. audible wheeze heard. iv fluids infusing without difficulty. tube feed remains off per earlier order. bed in lowest position, bed alarm on, call light in reach
[2018-05-28 08:00] VITALS: BP 121/61
[2018-05-28 08:20] LABS: BASO % 0.3 % (0.0-1.0); EOS # 0.2 10*3/uL (0.0-0.4); HEMATOCRIT 40.4 % (37.0-47.0); HEMOGLOBIN 12.8 g/dl (12.0-16.0); LYMPH # 1.6 10*3/uL (1.3-4.4); LYMPH % 13.4 % (27.0-41.0); MEAN CELL VOLUME 95.7 fl (81.0-99.0); MEAN CORPUSCULAR HGB 30.3 pg (27.0-31.0); MEAN CORPUSCULAR HGB CONC 31.7 g/dl (33.0-37.0); MEAN PLATELET VOLUME 12.2 fl (9.6-12.3); MONO % 8.7 % (3.0-9.0); NEUT # 8.8 10*3/uL (2.3-7.9); NEUT % 75.3 % (47.0-73.0); PLATELET COUNT AUTOMATED 170 10*3/uL (130-400); RED BLOOD COUNT 4.22 10*6/uL (4.10-5.10); RED CELL DISTRI WIDTH 14.7 % (0-14.5); WHITE BLOOD COUNT 11.6 10*3/uL (4.8-10.8)
[2018-05-28 08:35] LABS: BUN 13 mg/dl (7-24); CHLORIDE 112 mmol/L (98-107); CREATININE 0.64 mg/dL (0.55-1.02); POTASSIUM 3.5 mmol/L (3.5-5.1); SODIUM 143 mmol/L (136-145)
--- NOTE | 2018-05-28 09:00 | NUR ---
case management visits with patient, patient is drugless doctor resident of [facility], will contact [place] and see if patient is able to return when medically stable
[2018-05-28 12:00] VITALS: BP 116/89
--- NOTE | 2018-05-28 12:00 | NUR ---
I TALKED TO DR. COHEN ABOUT THE PATIENT'S TUBE FEED THAT HAD BEEN STOPPED LAST NIGHT. DR COHEN INSTRUCTED ME TO CONTINUE THE TUBE FEED AT 20/HOUR. WILL CONTINUE TO MONITOR.
--- NOTE | 2018-05-28 13:30 | NUR ---
Pt. is Medicare and Private Pay at [facility]. If she requires SNF stay she would need a 3 day hospital stay. Case Management aware. If SNF she would need a Precert due to 0 Full SNF days left. Admissions at [facility] would need to know.
--- NOTE | 2018-05-28 14:25 | NUR ---
DR. MAYORGA WAS NOTIFIED OF THE CONSULT WITH THIS PATIENT.
[2018-05-28 16:00] VITALS: BP 114/53
--- NOTE | 2018-05-28 19:19 | NUR ---
PATIENT WAS CRYING AND AFTER ASKED ABOUT PAIN, PT INDICATED THEY WERE EXPERIENCING ABDOMINAL PAIN. DR. COHEN WAS NOTIFIED AND THE TUBE FEED WAS STOPPED. PATIENT WAS TAKEN TO CT.
[2018-05-28 20:00] VITALS: BP 117/90
--- NOTE | 2018-05-28 20:42 | NUR ---
WHEN ASKED ABOUT PAIN AND LOCATION OF THE PAIN THE PATIENT INDICATED THAT HER LEGS WERE IN PAIN. PRN TYLENOL WAS ADMINISTERED THRU PEG TUBE. WILL MONITOR FOR EFFECTIVENESS.
[2018-05-29] VITALS: BP 118/51
--- NOTE | 2018-05-29 01:00 | NUR ---
60 CC FREE WATER FLUSH ADMINISTERED INTO PEG TUBE, AIR BOLUS TO AUSCULTATE PLACEMENT. TUBE FEEDING STARTED AT 20CC/HR. ABX HUNG AT THIS TIME. PT HAS EYES OPEN BUT IS CALM. ARM ABOVE HEAD, IN NO DISTRESS, O2 NC REAPPLIED AND PT ENCOURAGED TO LEAVE IN PLACE. ALL SAFETY MEASURES IN PLACE, WHEELS LOCKED, BED IN LOWEST POSITION, CALL LIGHT IN REACH.
[2018-05-29 08:00] VITALS: BP 128/70
[2018-05-29 12:01] VITALS: BP 120/60
--- NOTE | 2018-05-29 12:50 | NUR ---
CALLED DIETARY TO NOTIFY THEM THAT I NEED TUBE FEED FOR TODAY
--- NOTE | 2018-05-29 13:30 | NUR ---
CHECKED RESIDUAL PRIOR TO GIVING MEDICATIONS, RESIDUAL OF 30CC DARK LIQUID. TUBE FEEDINGS, REPLACDED RESIDUAL, FLUSED WITH 50CC WATER STARTED, STARTED AT 20 AND WILL SEE IF PATIENT TOLERATES. WILL INCREASE TO ORDER OF 40CC/HOUR IF ABLE.
--- NOTE | 2018-05-29 14:15 | NUR ---
TUBE FEEDING INFUSING, PT CALM
--- NOTE | 2018-05-29 15:19 | NUR ---
WENT IN TO CHECK PATIENTS PEG TUBE, AND HOW PATIENT TOLERATING PEG. THE PEG TUBE SEEMED CAUGHT ON THE CLAMP AND THE TUBING IS RIPPED IN HALF. UNSURE WHAT HAPPEEND TO TUBING, PT IS NOT ALERT OR ORIENTED. NOTIFIED DR. MAYORGA, NO NEW ORDERS AT THIS TIME. HE IS AWARE THAT TUBE REMAINS IN STOMACH AND TUBE IS CLAMPED. TUBE FEEDING OFF
--- NOTE | 2018-05-29 15:23 | NUR ---
NOTIFIED DR. APONTE/DR. NICKERSON ABOUT PEG TUBE, THEY ARE AWARE WAITING DR. MAYORGA TO NOTIFY WITH WHAT HE IS GOING TO DO WITH PEG TUBE
--- NOTE | 2018-05-29 15:53 | NUR ---
SPOKE TO DR. MAYORGA, HE WANTS RN TO CUT PEG TUBE WHERE IT IS RIPPED AND REATTACH THE COLLIN VALVE TO THE INTACT END. OKAY TO RESUME TUBE FEEDING
[2018-05-29 16:00] VITALS: BP 132/71
--- NOTE | 2018-05-29 16:30 | NUR ---
PEG TUBE WORKING WITOUT DIFFICULTY, TUBE FEEDING INCREASED TO 30CC/HOUR
--- NOTE | 2018-05-29 19:00 | NUR ---
PT AWAKE IN BED DURING BEDSIDE SHIFT REPORT. BED IN LOW POSITION W/HOB AT 30 DEGREES, WHEELS LOCKED AND ALARM ON. ALL NEEDS MET. CALL LIGHT IN REACH.
[2018-05-29 20:00] VITALS: BP 121/64
--- NOTE | 2018-05-29 21:17 | NUR ---
PT MEDICATED W/LIQUID TYLENOL FOR S/S OF DISTRESS. JEVITY INFUSING W/OUT DIFF. NO RESIDUAL VIA PEG. PEG TUBE FLUSHED W/OUT DIFF. ABD SLIGHTLY SOFTLY DISTENDED. REPOSITIONED FOR COMFORT. CALL LIGHT IN REACH.
[2018-05-30 00:06] VITALS: BP 118/55
[2018-05-30 08:00] VITALS: BP 125/80
--- NOTE | 2018-05-30 08:00 | NUR ---
PEG FEEDING STOPPED AT THIS TIME PER ORDER.
--- NOTE | 2018-05-30 11:45 | NUR ---
PT PULLED OUT IV OUT AT THIS TIME. NEW IV ESTABLISHED IN RIGHT ARM #22G.
[2018-05-30 12:00] VITALS: BP 140/68
--- NOTE | 2018-05-30 12:00 | NUR ---
TUBE FEEDING RESUMED AT 30ML PER HOUR PREVIOUS. PT TOLERATING WELL.
[2018-05-30 16:00] VITALS: BP 132/66
--- NOTE | 2018-05-30 17:00 | NUR ---
PT RESTING IN BED COMFORTABLY, NO DISTRESS NOTED. BED ALARM MAINTAINED, HOB ELEVATED 30 DEGRESS, JEVITY INFUSING AT 30ML/HR. PT TOLERATING WELL.
--- NOTE | 2018-05-30 19:00 | NUR ---
PT RESTING QUIETLY IN BED DURING BEDSIDE SHIFT REPORT. NO S/S OF DISTRESS NOTED. BED IN LOW POSITION W/WHEELS LOCKED AND ALARM ON. CALL LIGHT IN REACH.
[2018-05-30 20:00] VITALS: BP 132/71
[2018-05-30 23:53] VITALS: BP 121/89
--- NOTE | 2018-05-31 03:33 | NUR ---
24 HR chart check completed.
--- NOTE | 2018-05-31 05:33 | NUR ---
PEG TUBE INSERTION SITE CLEANSED W/NS AND DRAIN SPONGE APPLIED. PT TOLERATED WELL. SM AMOUNT OF PURULENT DRAINAGE NOTED. WILL MONITOR.
[2018-05-31 06:58] LABS: HEMATOCRIT 36.1 % (37.0-47.0); MEAN CELL VOLUME 93.5 fl (81.0-99.0); MEAN CORPUSCULAR HGB 31.1 pg (27.0-31.0); MEAN CORPUSCULAR HGB CONC 33.2 g/dl (33.0-37.0); MEAN PLATELET VOLUME 11.1 fl (9.6-12.3); PLATELET COUNT AUTOMATED 207 10*3/uL (130-400); RED BLOOD COUNT 3.86 10*6/uL (4.10-5.10); RED CELL DISTRI WIDTH 14.1 % (0-14.5); WHITE BLOOD COUNT 8.6 10*3/uL (4.8-10.8)
[2018-05-31 07:07] LABS: BUN 5 mg/dl (7-24); CHLORIDE 112 mmol/L (98-107); CREATININE 0.51 mg/dL (0.55-1.02); POTASSIUM 3.2 mmol/L (3.5-5.1); SODIUM 144 mmol/L (136-145)
[2018-05-31 07:37] LABS: BASOPHILS 1 % (0-1); PLATELET SUFFICIENCY NORMAL (NORMAL); TOTAL CELLS COUNTED 100 #CELLS
--- NOTE | 2018-05-31 07:40 | NUR ---
clincal updates faxed to [facility] for review. patient is LTC and can return when medically stable for discharge.
[2018-05-31 08:00] VITALS: BP 143/59
--- NOTE | 2018-05-31 08:00 | NUR ---
PATIENT RESTING QUIETLY IN BED. 02 IN USE. POX 94% VIA 2LNC. PEG FEED SHUT OFF AT THIS TIME PER ORDER. WILL CONTINUE TO MONITOR. VSS. BED ALARM MAINTAINED FOR SAFETY. CALL LIGHT WITHIN REACH.
[2018-05-31 12:00] VITALS: BP 136/67
[2018-05-31 16:00] VITALS: BP 137/71
[2018-05-31 20:00] VITALS: BP 146/115
--- NOTE | 2018-05-31 20:48 | NUR ---
24 HR CHART CHECK COMPLETE.
--- NOTE | 2018-05-31 20:48 | NUR ---
PT ASLEEP. REPORT RECIEVED FROM DEE DEE DIEGO. BED LOW, CALL LIGHT WITHIN REACH.
--- NOTE | 2018-05-31 21:30 | NUR ---
CALLED DR. MONTEMAYOR TO INFORM HIM OF PT BECOMING RESTLESS, AGITATED AND CRYING. DR. MONTEMAYOR STATED HE WOULD BE UP TO ASSESS PT.
--- NOTE | 2018-05-31 22:00 | NUR ---
DR. MONTEMAYOR GAVE ONE TIME ORDER FOR 0.5 ATIVAN VIA PEG. IT WAS ADMINISTERED TO PT. WILL CONTINUE TO MONITOR FOR EFFECTIVENESS.
--- NOTE | 2018-05-31 23:00 | NUR ---
PT RESTING COMFORTABLY FOLLOWING ONE TIME DOES OF 0.5 ATIVAN VIA PEG. BED LOW, CALL LIGHT WITHIN REACH. WILL CONTINUE TO MONITOR.
[2018-06-01] VITALS: BP 139/121
[2018-06-01 07:20] LABS: BUN 5 mg/dl (7-24); CHLORIDE 113 mmol/L (98-107); CREATININE 0.55 mg/dL (0.55-1.02); POTASSIUM 3.8 mmol/L (3.5-5.1); SODIUM 146 mmol/L (136-145)
[2018-06-01 08:00] VITALS: BP 116/89
--- NOTE | 2018-06-01 09:20 | NUR ---
AT BEDSIDE, INFORM TO PLACE SPUTUM ORDER.
--- NOTE | 2018-06-01 09:45 | NUR ---
PATIENT MEDICATED WITH TYLENOL FOR SUSPECTED PAIN, DURING REPOSITIONING/[facility] PATIENT WAS AGITATED AND YELLING OUT. WILL MONITOR.
--- NOTE | 2018-06-01 10:45 | NUR ---
PATIENT IS RELAXING IN BED AT THIS TIME, NO S&S OF DISTRESS NOTED. CALL LIGHT LEFT WITHIN REACH.
[2018-06-01 12:00] VITALS: BP 142/74
[2018-06-01] MEDS ORDERED: REGLAN 5MG/5 MG/5 ML PO (13:51)
[2018-06-01] MEDS ORDERED: JEVITY 1 CAL237 ML PO ×2 (13:55→13:57)
[2018-06-01] MEDS ORDERED: JEVITY 1 CAL237 ML GT (14:16)
--- NOTE | 2018-06-01 14:34 | NUR ---
Patient is discharged to [facility]; transportation scheduled for 4:[facility] with [facility]. [facility] and nursing notified.
--- NOTE | 2018-06-01 15:03 | NUR ---
NURSE TO NURSE REORT GIVEN TO AC AT [facility].
[2018-06-01 16:00] VITALS: BP 148/70
--- NOTE | 2018-06-01 16:31 | NUR ---
Discharge instructions reviewed with [facility]. Patient receptive and verbalizes understanding. Follow-up care arranged AT THE [facility]. Written instructions given to AMBULANCE. IV CATHETER REMOVED AND DISCONNECTED FROM TUBEFEED. CHERELLE ZIMMERMAN
[2018-07-17] MEDS ORDERED: ATIVAN1 MG PEG (13:22)
[2018-07-17] MEDS ORDERED: HALDOL5 MG/1 ML IJ (13:23)
[2018-07-17] MEDS ORDERED: BISAC-EVAC10 MG R (13:24)
[2018-07-18] MEDS ORDERED: SEPTDS PO (14:36)
[2018-07-18] MEDS ORDERED: PREVACID30 M3 PO (14:37)
[2018-07-28] MEDS ORDERED: POTASSIUM CHLO10 MEQ PO (11:51)
[2018-07-28] MEDS ORDERED: SEROQUEL25 MG PEG (11:53)
[2018-07-28] MEDS ORDERED: ROBITUSSIN DM 101 OZ PEG (11:54)
[2018-08-03] MEDS ORDERED: ERTAPENEM1 GM IM (13:21)
[2018-08-03] MEDS ORDERED: LINEZOLID600 MG PO (13:21)
[2018-08-03] MEDS ORDERED: XYLOCAINE10 MG/1 ML IM (13:24)
[2018-08-15] MEDS ORDERED: ATIVAN1 MG PEG (12:42)
[2018-08-15] MEDS ORDERED: DICYCLOMINE HCL10 MG PO (12:42)
[2018-08-15] MEDS ORDERED: FLUCONAZOLE100 MG PEG (12:42)
== END 2018-06-01 16:31 | DRG 871 ==
LOC: ED 19:34 → EDHOLD 21:47 → 4E 21:47
PROVIDERS: Emergency Medicine; Internal Medicine; Internal Medicine Nephrology; Student in an Organized Health Care Education/Training Program; ADMIT Internal Medicine
DX: A41.9 Sepsis, unspecified organism (principal); J69.0 Pneumonitis due to inhalation of food and vomit; R65.21 Severe sepsis with septic shock; N17.0 Acute kidney failure with tubular necrosis; I50.32 Chronic diastolic (congestive) heart failure; E87.2 Acidosis; F41.9 Anxiety disorder, unspecified; N18.9 Chronic kidney disease, unspecified; F03.90 Unspecified dementia, unspecified severity, without behavioral disturbance, psychotic disturbance, mood disturbance, and anxiety; K76.0 Fatty (change of) liver, not elsewhere classified; E78.5 Hyperlipidemia, unspecified; E03.9 Hypothyroidism, unspecified; D72.810 Lymphocytopenia; D16.9 Benign neoplasm of bone and articular cartilage, unspecified; E66.3 Overweight; I27.20 Pulmonary hypertension, unspecified; I07.1 Rheumatic tricuspid insufficiency; Z66 Do not resuscitate; E87.8 Other disorders of electrolyte and fluid balance, not elsewhere classified; E55.9 Vitamin D deficiency, unspecified; E11.65 Type 2 diabetes mellitus with hyperglycemia; E87.6 Hypokalemia; Z84.89 Family history of other specified conditions; Z86.718 Personal history of other venous thrombosis and embolism; Z88.5 Allergy status to narcotic agent; Z86.711 Personal history of pulmonary embolism; Z93.1 Gastrostomy status; Z68.28 Body mass index [BMI] 28.0-28.9, adult

== ENCOUNTER 2018-06-28 05:27 | Inpatient (IN) | payer MEDICARE, OTHER ==
[2018-06-28] VITALS (8 sets, daily range): BP systolic 104–130; BP diastolic 58–87
[~2018-06-28] VITALS: Ht 167.6 cm; Wt 77.2 kg
--- NOTE | ~2018-06-28 | EKG ---
[place], [place] ELECTROCARDIOGRAM REPORT NAME: HARJEET ENRIQUEZ UNIT #: [id number] ROOM: 517 DOCTOR: GILDARDO DRAFT REPORT BIRTHDATE: [birth year] [facility] Test Date: 2018-06-28 Test Time: 05:42:31 Pat Name: HARJEET ENRIQUEZ Department: Room: 517 Gender: F Manager Digital Ad Operations: : 1940 Requested By: HANS MCNALLY Order Number: [id number] Reading MD: Bert Narayan MD Measurements Intervals [place] Rate: 110 P: -17 OR: 131 QRS: -11 QRSD: 91 T: 53 QT: 323 QTc: 438 Interpretive Statements Sinus tachycardia Low voltage, extremity and precordial leads Consider anterior infarct Nonspecific T abnormalities, lateral leads Compared to ECG 05/25/2018 22:45:55 Sinus rhythm no longer present Myocardial infarct finding still present Electronically Signed On 06-28-2018 17:54:34 PST by Bert Narayan MD CM:EKGRPT:ELECTROCARDIOGRAM REPORT [id number] HANS ANDRADE DRAFT REPORT HANS MCNALLY DO
[~2018-06-28 05:27] MED LIST changes: +ATIVAN0.5 MG PEG; +ATIVAN1 MG PEG; +BENADRYL ALLERG25 M5 PO; +CYMBALTA60 MG PO; +Ipratropium Brom3 ML INH; +JEVITY 1 CAL237 ML GT; +JEVITY 1 CAL237 ML PO; +NYSTATIN CREAM15 GM T; +PREVACID15 M2 PEG; +REGLAN 5MG/5 MG/5 ML PO; +ZOFRAN4 MG PEG
[2018-06-28 06:19] LABS: BASO % 0.3 % (0.0-1.0); EOS # 0.1 10*3/uL (0.0-0.4); EOS % 0.4 % (1.0-4.0); HEMATOCRIT 48.9 % (37.0-47.0); HEMOGLOBIN 16.1 g/dl (12.0-16.0); LYMPH # 1.6 10*3/uL (1.3-4.4); LYMPH % 11.1 % (27.0-41.0); MEAN CELL VOLUME 95.1 fl (81.0-99.0); MEAN CORPUSCULAR HGB 31.3 pg (27.0-31.0); MEAN CORPUSCULAR HGB CONC 32.9 g/dl (33.0-37.0); MEAN PLATELET VOLUME 12.4 fl (9.6-12.3); MONO # 0.9 10*3/uL (0.1-1.0); MONO % 5.8 % (3.0-9.0); NEUT # 12.1 10*3/uL (2.3-7.9); NEUT % 82.1 % (47.0-73.0); PLATELET COUNT AUTOMATED 214 10*3/uL (130-400); RED BLOOD COUNT 5.14 10*6/uL (4.10-5.10); RED CELL DISTRI WIDTH 13.7 % (0-14.5); WHITE BLOOD COUNT 14.8 10*3/uL (4.8-10.8)
[2018-06-28 06:30] LABS: ACT PARTIAL THROMBO TIME 24.8 SECONDS (20.8-31.5)
[2018-06-28 06:40] LABS: ALBUMIN 3.1 gm/dl (3.1-4.5); ALKALINE PHOSPHATASE 134 U/L (45-117); BUN 13 mg/dl (7-24); CHLORIDE 107 mmol/L (98-107); CREATININE 0.92 mg/dL (0.55-1.02); POTASSIUM 4.3 mmol/L (3.5-5.1); SGOT/AST 24 IU/L (3-35); SGPT/ALT 24 U/L (12-78); SODIUM 140 mmol/L (136-145); TOTAL PROTEIN 7.5 gm/dL (6.4-8.2)
[2018-06-28 06:44] LABS: TROPONIN I < 0.015 ng/ml (<0.045)
--- NOTE | 2018-06-28 06:48 | NUR ---
JOSEP NURSE AT [facility], NURE TO NURSE REPORT.
--- NOTE | 2018-06-28 06:56 | NUR ---
AT BEDSIDE. RESTING QUIETLY. VS STABLE.
--- NOTE | 2018-06-28 06:59 | NUR ---
PT VOICED CONCERNS ABOUT PTS BREATHING/ SPO2 97% ON 3L PER NC AT THIS TIME. REASSURED PTS THAT SPO2 IS WNL AND WE'RE WAITING ON TEST RESULTS FOR FURTHER TREATMENT, THAT PT HAS HAD A BREATHING TREATMENT.
--- NOTE | 2018-06-28 07:54 | NUR ---
AWAITING ROOM FOR THIS PT'S ADMISSION.SHE IS RESTING QUIETLY NOW. PULSE OX 96 ON 3L. NO WOUNDS NOTED. IV FLUIDS STARTED. AT BEDSIDE.---GARRET LEACH RN
--- NOTE | 2018-06-28 08:00 | NUR ---
PT BEING ADMITTED TO ROOM 517.FLOOR NURSE ASKING FOR 15 MIN BEFORE PT IS BROUGHT TO FLOOR. NOTIFIED [facility] NURSE SHAHNAZ AND MADE HER AWARE OF PT ADMISSION.---GARRET LEACH RN
--- NOTE | 2018-06-28 08:06 | NUR ---
DNRCC ARREST BAND APPLIED.MRSA SWAB DONE.--GARRET LEACH RN
[2018-06-28] MEDS ORDERED: KLORVESS,K40 MEQ/30 GT (08:13)
[2018-06-28] MEDS ORDERED: RISPERIDONE0.25 M2 GT (08:15)
--- NOTE | 2018-06-28 08:30 | NUR ---
A 78, admitted to 5E, under the services of MARLIN Sheriff DO with a diagnosis of SEVERE SEPSIS. Chief complaint is RESPIRATORY FAILURE. Patient arrived via stretcher from ER. Monitor applied. Initial assessment completed. Vital signs taken and recorded. MARLIN SHERIFF DO notified of admission to the unit. Orders received. See assessment for past medical history, medications and allergies. Patient and/or family oriented to unit. [facility] visitation policy reviewed. Clothing/patient valuable form completed. JOHNATHON RAMIREZ
[2018-06-28] MEDS ORDERED: ALBUTEROL2.5 MG/0.5 INH (12:50)
[2018-06-28] MEDS ORDERED: MILK OF MA400 MG/5 M PEG (12:55)
--- NOTE | 2018-06-28 13:05 | NUR ---
Notified Dr. Mason that patients med rec is completed.
--- NOTE | 2018-06-28 17:52 | NUR ---
Ativan given because patient is crying, wrestless, aggitated and cannot be calmed down. at bedside.
--- NOTE | 2018-06-28 18:13 | NUR ---
Ativan not effective.
--- NOTE | 2018-06-28 18:15 | NUR ---
Contacted Dr. Mason regarding patients wrestless, crying and aggitation. See new orders.
--- NOTE | 2018-06-28 18:50 | NUR ---
Ativan given because patient is tearful, aggitated, wrestless and unable to calm down. is at bedside.
--- NOTE | 2018-06-28 19:10 | NUR ---
Ativan not effective. Bedside report given, remains at bedside trying to comfort. Patients continues to cry out.
--- NOTE | 2018-06-28 19:55 | NUR ---
DR. ROBERT NOTIFIED OF ELEVATED TEMP AT 101.1. ALSO THAT PT CONT TO YELL OUT. AND THAT PT HAS POSITIVE BLOOD CULTURES. REQUESTING TYLENOL - NONE ON .
--- NOTE | 2018-06-28 20:43 | NUR ---
2030 HS MEDS AND TYLENOL GIVEN VIA OGT. CONT TO CALL OUT AND YELL LOUDLY., AT BEDSIDE. HEP LOOCK INTACT. O2 INTACT VIA NC.
--- NOTE | 2018-06-28 20:45 | NUR ---
ABOVE NOTE SHOULD STATE PEG TUBE, NOT OGT.
--- NOTE | 2018-06-28 21:35 | NUR ---
TEMP IS DOWN TO 98.8. PT IS RESTING NOW WITH EYES CLOSED. APPEARS TO BE SLEEPING. SIDE RAILS UP X'S 4. NO DISTRESS NOTED.
--- NOTE | 2018-06-28 23:16 | NUR ---
PT IS QUIETER, BUT AUDIBLE WHEEZING NOTED. RESPIRATORY THERAPY CALLED FOR PRN DUONEB BREATHING TREATMENT
[2018-06-29] VITALS: BP 108/45
--- NOTE | 2018-06-29 00:55 | NUR ---
EARLIER BREATHING RX EFFECTIVE. MUCOUS MEMBRANES DRY. ORAL CARE DONE.
--- NOTE | 2018-06-29 01:07 | NUR ---
BED CHANGE DONE FOR LARGE AMOUNT URINE. RAMU CARE DONE. REPOSITIONED.
--- NOTE | 2018-06-29 06:17 | NUR ---
RESTING IN BED WITH EYES CLOSED. APPEARS TO BE SLEEPING. 02 INTACT. HOB ELEVATED. SIDE RAILS UP X'S 2. BED ALARM INTACT. HEP LOCK INTACT. ROUTINE ATIVAN GIVEN VIA PEG TUBE. MOIST COUGH CONT. CONDITION GUARDED.
[2018-06-29 06:48] LABS: ALBUMIN 2.5 gm/dl (3.1-4.5); ALKALINE PHOSPHATASE 116 U/L (45-117); BUN 11 mg/dl (7-24); CHLORIDE 112 mmol/L (98-107); SGOT/AST 17 IU/L (3-35); SGPT/ALT 19 U/L (12-78); SODIUM 143 mmol/L (136-145); TOTAL PROTEIN 6.4 gm/dL (6.4-8.2)
[2018-06-29 08:00] VITALS: BP 126/78
[2018-06-29 08:01] VITALS: BP 110/70
[2018-06-29 08:07] LABS: BASO % 0.3 % (0.0-1.0); EOS % 0.3 % (1.0-4.0); HEMATOCRIT 43.2 % (37.0-47.0); LYMPH # 1.3 10*3/uL (1.3-4.4); LYMPH % 10.8 % (27.0-41.0); MEAN CORPUSCULAR HGB 31.3 pg (27.0-31.0); MEAN CORPUSCULAR HGB CONC 31.7 g/dl (33.0-37.0); MEAN PLATELET VOLUME 12.5 fl (9.6-12.3); MONO # 1.1 10*3/uL (0.1-1.0); MONO % 9.6 % (3.0-9.0); NEUT # 9.2 10*3/uL (2.3-7.9); NEUT % 78.7 % (47.0-73.0); PLATELET COUNT AUTOMATED 180 10*3/uL (130-400); RED BLOOD COUNT 4.38 10*6/uL (4.10-5.10); RED CELL DISTRI WIDTH 13.8 % (0-14.5); WHITE BLOOD COUNT 11.7 10*3/uL (4.8-10.8)
[2018-06-29 08:16] LABS: HEMOGLOBIN 13.7 g/dl (12.0-16.0); MEAN CELL VOLUME 98.6 fl (81.0-99.0)
--- NOTE | 2018-06-29 10:55 | NUR ---
PT IS RETIREMENT CARE AT [facility] AND CAN RETURN WHEN MEDICALLY STABLE. WILL CONTINUE TO FOLLOW.
[2018-06-29 12:00] VITALS: BP 115/55
--- NOTE | 2018-06-29 14:55 | NUR ---
Clinical updates faxed to [facility], patient is terminal computer operator resident and can return when medically stable for discharge.
[2018-06-29 16:00] VITALS: BP 128/68
--- NOTE | 2018-06-29 18:47 | NUR ---
Patient started crying because her went home. Comforted by staff.
[2018-06-29 20:00] VITALS: BP 131/78
[2018-06-30] VITALS: BP 112/73
--- NOTE | 2018-06-30 00:01 | NUR ---
Tearful, asked if hurting, states yes. Tylenol given as ordered for complaints of generalized pain at 2125. Tylenol effective to decrease pain and allow to rest quietly. Will continue to monitor.
[2018-06-30 07:16] LABS: BASO % 0.1 % (0.0-1.0); EOS # 0.1 10*3/uL (0.0-0.4); EOS % 0.8 % (1.0-4.0); HEMATOCRIT 39.6 % (37.0-47.0); LYMPH # 0.9 10*3/uL (1.3-4.4); LYMPH % 10.8 % (27.0-41.0); MEAN CORPUSCULAR HGB 31.3 pg (27.0-31.0); MEAN CORPUSCULAR HGB CONC 32.8 g/dl (33.0-37.0); MEAN PLATELET VOLUME 11.7 fl (9.6-12.3); MONO # 0.6 10*3/uL (0.1-1.0); MONO % 7.6 % (3.0-9.0); NEUT # 6.8 10*3/uL (2.3-7.9); NEUT % 80.6 % (47.0-73.0); PLATELET COUNT AUTOMATED 169 10*3/uL (130-400); RED BLOOD COUNT 4.16 10*6/uL (4.10-5.10); RED CELL DISTRI WIDTH 13.8 % (0-14.5); WHITE BLOOD COUNT 8.4 10*3/uL (4.8-10.8)
[2018-06-30 07:17] LABS: MEAN CELL VOLUME 95.2 fl (81.0-99.0)
[2018-06-30 07:29] LABS: BUN 12 mg/dl (7-24); CHLORIDE 111 mmol/L (98-107); CREATININE 0.71 mg/dL (0.55-1.02); POTASSIUM 3.9 mmol/L (3.5-5.1); SODIUM 143 mmol/L (136-145)
[2018-06-30 08:00] VITALS: BP 112/62
--- NOTE | 2018-06-30 10:32 | NUR ---
KWABENA FORBES ROUNDED AND SEEN PT.ORDERS RECIEVED.
[2018-06-30 12:00] VITALS: BP 117/54
[2018-06-30 16:00] VITALS: BP 110/61
--- NOTE | 2018-06-30 17:48 | NUR ---
TYLENOL 650 MG GIVEN PER HUSBANDS REQUEST.
[2018-06-30 20:00] VITALS: BP 102/52
--- NOTE | 2018-06-30 20:00 | NUR ---
Patient resting quietly with no c/o discomfort. Respirations easy and regular. Vital signs stable. No overt distress. CHANDRA TORRES
--- NOTE | 2018-06-30 23:30 | NUR ---
MEDICATED WITH PO TYLENOL ORDERED FOR GRIMACING AND C/O HEADACHE.
[2018-07-01] VITALS: BP 113/58
--- NOTE | 2018-07-01 03:05 | NUR ---
24 HR chart check completed.
--- NOTE | 2018-07-01 04:00 | NUR ---
Patient resting quietly with no c/o discomfort. Respirations easy and regular. Vital signs stable. No overt distress. CHANDRA TORRES
[2018-07-01 08:00] VITALS: BP 128/65
--- NOTE | 2018-07-01 08:33 | NUR ---
IV IN R AC INFILTRATED. NEW IV STARTED IN L WRIST. #24 INSERTED. WILL MONITOR.
--- NOTE | 2018-07-01 08:37 | NUR ---
KWABENA FORBES MADE AWARE OF POSITIVE BLOOD CULTURE OF STREP MITIS.
--- NOTE | 2018-07-01 11:37 | NUR ---
HEEL PROTECTORS PLACED ON PATIENT ORDERED. NO SKIN BREAK DOWN NOTED AT THIS TIME. WILL MONITOR.
--- NOTE | 2018-07-01 11:47 | NUR ---
Shift chart check completed.
[2018-07-01 12:00] VITALS: BP 135/73
[2018-07-01 16:00] VITALS: BP 107/59
--- NOTE | 2018-07-01 17:10 | NUR ---
PATIENT'S REQUESTING TYLENOL FOR PAIN. PATIENT GRIMMACING WITH PAIN WHEN TURNED.TYLENOL ADMINISTERED PRESCRIBED. WILL MONITOR FOR EFFECTIVENESS.
--- NOTE | 2018-07-01 18:10 | NUR ---
PATIENT RESTING WITH EYES CLOSED AT THIS TIME. DOES NOT APPEAR TO BE IN ANY DISTRESS AT THIS TIME. WILL MONITOR.
--- NOTE | 2018-07-01 19:19 | NUR ---
24 HR CHART CHECK COMPLETE.
[2018-07-01 20:00] VITALS: BP 114/65
--- NOTE | 2018-07-01 20:00 | NUR ---
PT ASLEEP IN BED. NO SIGNS OR SYMPTOMS OF DISTRESS NOTED. BED ALARM ON, BED LOW. WILL CONTINUE TO MONITOR.
[2018-07-02] VITALS: BP 131/77
--- NOTE | 2018-07-02 03:29 | NUR ---
IV IN LEFT WRIST INFILTRATED. NEW 22G PERIPHERAL INSERTED INTO RIGHT ARM WITHOUT DIFFICULTY ON FIRST ATTEMPT. PATIENT TOLERATED WELL. WILL CONTINUE TO MONITOR. CALL LIGHT IN REACH.
[2018-07-02 08:00] VITALS: BP 136/74
--- NOTE | 2018-07-02 08:00 | NUR ---
VITAL SIGNS STABLE A&O X1 TO PERSON, UNABLE TO FOLLOW COMMANDS BUT AWAKE, HEART SOUND NORMAL, WHEEZING NOTED THROUGH OUT, BS ACTIVE X 4 QUADS, ABDOMIN SOFT, NON TENDER, NO EDEMA NOTED, PEG PLACEMENT VERIFIED AND FEED STOPPED PER ORDER, PEG SITE ASYMPTOMATIC, SKIN PINK, DRY AND INTACK, HEEL PROTECTORS APPLIED JULIETA.[facility] CHANDRA BACON
--- NOTE | 2018-07-02 11:17 | NUR ---
Clincal updates faxed to [facility] for review. Patient is residential care and can return when medically stable for discharge.
--- NOTE | 2018-07-02 11:28 | NUR ---
PT IS SENIOR CARE CARE AT [facility] AND CAN RETURN ON DISCHARGE.
--- NOTE | 2018-07-02 12:00 | NUR ---
PEG TUBE SITE CLEANED WITH NORMAL SALINE DRESSING SITE INTACT NO REDNESS NOTED TUBE FEED STARTED CHANDRA JORDI NAPOLES
[2018-07-02 12:35] VITALS: BP 95/59
[2018-07-02 16:00] VITALS: BP 130/62
--- NOTE | 2018-07-02 18:20 | NUR ---
DR LEDEZMA CALLED, PATIENT VERY AGITATED AND TAKING OFF HER OXYGEN. SPO2 85% ON ROOM AIR. MEDICATIONS REVEIWED WITH WAITING FOR NEW ORDERS.
--- NOTE | 2018-07-02 18:45 | NUR ---
ONE TIME DOSE OF 0.5 ATIVAN ADMINISTERED FOR RESTLESSNESS. WILL MONITOR FOR EFFECTIVENESS.
--- NOTE | 2018-07-02 19:53 | NUR ---
24 HR chart check completed.
--- NOTE | 2018-07-02 21:00 | NUR ---
NON-VERBAL BUT MOANING. RESPIRATIONS EASY. LUNGS DIMINISHED WITH POOR INSP EFFORT. O2 IN USE AT 2L. DRY NON-PRODUCTIVE COUGH. PEG TUBE PATENT AND INTACT. DRESSING CHANGED AT PEG INSERTION SITE. PLACEMENT VERIFIED VIA AIR BOLUS, FLUSHES EASILY WITH NO RESIDUAL NOTED. FEEDING MAINTAINDE PER ORDER. +1 BLE EDEMA NOTED WITH TEDS AND HEEL PROTECTORS IN PLACE. CALL LIGHT WITHIN REACH. BED ALARM MAINTAINED FOR SAFETY
[2018-07-03] VITALS: BP 146/80; BP 146/90
--- NOTE | 2018-07-03 | NUR ---
REMAINS AWAKE, RESTLESS. MOANING. RESPIRATIONS EASY. VSS. O2 IN USE. CALL LIGHT WITHIN REACH. BED ALARM MAINTAINED
--- NOTE | 2018-07-03 06:05 | NUR ---
RESTLESS, MOANING. PATIENT REPOSITIONED FOR COMFORT. ROUTINE ATIVAN AND PRN TYLENOL GIVEN VIA PEG TUBE. CALL LIGHT WITHIN REACH. BED ALARM MAINTAINED FOR SAFETY
[2018-07-03 06:27] LABS: BUN 10 mg/dl (7-24); CREATININE 0.78 mg/dL (0.55-1.02)
--- NOTE | 2018-07-03 06:39 | NUR ---
MEDS APPEAR EFFECTIVE. RESTING MORE QUIELTY. RESPIRATIONS EASY. O2 IN USE. CALL LIGHT WITHIN REACH. BED ALARM MAINTAINED FOR SAFETY
[2018-07-03 08:00] VITALS: BP 144/78
--- NOTE | 2018-07-03 08:52 | NUR ---
VITALS STABLE A&O X1 PERSON ONLY PATIENT DOES NOT VERBALIZE, CAPILLARY REFILL LESS THAN 3 SECONDS, POSITIVE PEDAL PULSES BILATERALLY, SKIN SOFT PINK DRY AND INTACK, NO EDEMA NOTED, BS X 4 QUADRANTS, LUNG SOUND CLEAR AND DIMINISHED THROUGH OUT, PEG TUBE SITE CLEANED WITH NORMAL SALINE AND NEW DRESSING APPLIED, PEG PLACEMENT VERIFIED WITH 30CC AIR BULUS, PEG FLUSHED WITH 100CC WATER CHANDRA BACON SP[facility]
[2018-07-03] MEDS ORDERED: PHOS-NAK PACKE1 EACH PEG (10:54)
[2018-07-03] MEDS ORDERED: LEVAQUIN750 M1 PO (10:54)
[2018-07-03] MEDS ORDERED: LORAZEPAM0.5 MG PEG (10:54)
[2018-07-03] MEDS ORDERED: LORAZEPAM1 MG PEG (10:54)
[2018-07-03] MEDS ORDERED: RISPERIDONE0.25 M2 PO (10:54)
--- NOTE | 2018-07-03 11:33 | NUR ---
PT IS BEING DISCHARGED TODAY AND WILL RETURN TO [facility].
[2018-07-03 12:00] VITALS: BP 110/64
--- NOTE | 2018-07-03 13:29 | NUR ---
REPORT GIVEN TO JEFFY DIEGO AT [facility] CHANDRA LONGORIA [facility]
--- NOTE | 2018-07-03 13:45 | NUR ---
Patient discharged back to the [facility], transportation is [facility] at 2:45 PM. candy counter clerk, nursing and snf all notified.
--- NOTE | 2018-07-03 14:00 | NUR ---
Discharge instructions reviewed with patient/family. Patient receptive and verbalizes understanding. Follow-up care arranged. Written instructions given to patient/family. HEP LOC REMOVED. PATIENT IS DRY. PEG TUBE FLUSHED AND CLOSED FOR TRANSPORT. DISCHARGED VIA [facility]. CONDITION STABLE. CHANDRA BACON [facility] BETY ALLAN
--- NOTE | 2018-07-03 14:21 | NUR ---
Discharge instructions reviewed with patient/family. Patient receptive and verbalizes understanding. Follow-up care arranged. Written instructions given to patient/family.Patient was wheeled from unit by EMT's and was present. Nurse to nurse report was given by nursing care attendant with supervision of instructor. JOHNATHON RAMIREZ
[2018-07-17] MEDS ORDERED: ATIVAN1 MG PEG (13:22)
[2018-07-17] MEDS ORDERED: HALDOL5 MG/1 ML IJ (13:23)
[2018-07-17] MEDS ORDERED: BISAC-EVAC10 MG R (13:24)
[2018-07-18] MEDS ORDERED: SEPTDS PO (14:36)
[2018-07-18] MEDS ORDERED: PREVACID30 M3 PO (14:37)
[2018-07-28] MEDS ORDERED: POTASSIUM CHLO10 MEQ PO (11:51)
[2018-07-28] MEDS ORDERED: SEROQUEL25 MG PEG (11:53)
[2018-07-28] MEDS ORDERED: ROBITUSSIN DM 101 OZ PEG (11:54)
[2018-08-03] MEDS ORDERED: ERTAPENEM1 GM IM (13:21)
[2018-08-03] MEDS ORDERED: LINEZOLID600 MG PO (13:21)
[2018-08-03] MEDS ORDERED: XYLOCAINE10 MG/1 ML IM (13:24)
[2018-08-15] MEDS ORDERED: ATIVAN1 MG PEG (12:42)
[2018-08-15] MEDS ORDERED: FLUCONAZOLE100 MG PEG (12:42)
[2018-08-15] MEDS ORDERED: DICYCLOMINE HCL10 MG PO (12:42)
== END 2018-07-03 14:00 | DRG 871 ==
LOC: ED 05:27 → EDHOLD 06:52 → 5E 06:52
PROVIDERS: Family Medicine; Internal Medicine; Student in an Organized Health Care Education/Training Program; ADMIT Internal Medicine
DX: A41.9 Sepsis, unspecified organism (principal); J18.1 Lobar pneumonia, unspecified organism; J96.00 Acute respiratory failure, unspecified whether with hypoxia or hypercapnia; E44.0 Moderate protein-calorie malnutrition; I50.32 Chronic diastolic (congestive) heart failure; G30.9 Alzheimer's disease, unspecified; R65.20 Severe sepsis without septic shock; F02.80 Dementia in other diseases classified elsewhere, unspecified severity, without behavioral disturbance, psychotic disturbance, mood disturbance, and anxiety; F41.9 Anxiety disorder, unspecified; E11.65 Type 2 diabetes mellitus with hyperglycemia; E78.5 Hyperlipidemia, unspecified; K76.0 Fatty (change of) liver, not elsewhere classified; Z66 Do not resuscitate; Z51.5 Encounter for palliative care; E66.3 Overweight; E03.9 Hypothyroidism, unspecified; E55.9 Vitamin D deficiency, unspecified; I27.20 Pulmonary hypertension, unspecified; E11.22 Type 2 diabetes mellitus with diabetic chronic kidney disease; N18.9 Chronic kidney disease, unspecified; I34.0 Nonrheumatic mitral (valve) insufficiency; Z88.5 Allergy status to narcotic agent; Z86.718 Personal history of other venous thrombosis and embolism; Z86.711 Personal history of pulmonary embolism; Z79.899 Other long term (current) drug therapy; Z93.1 Gastrostomy status; Z68.25 Body mass index [BMI] 25.0-25.9, adult

== ENCOUNTER → 2018-09-17 | Outpatient (CLI) | payer MEDICARE, OTHER ==
[~2018-09-17] MED LIST changes: +ALBUTEROL2.5 MG/0.5 INH; +BISAC-EVAC10 MG R; +DICYCLOMINE HCL10 MG PO; +ERTAPENEM1 GM IM; +FLUCONAZOLE100 MG PEG; +HALDOL5 MG/1 ML IJ; +KLORVESS,K40 MEQ/30 GT; +LEVAQUIN750 M1 PO; +LINEZOLID600 MG PO; +LORAZEPAM0.5 MG PEG; +LORAZEPAM1 MG PEG; +MILK OF MA400 MG/5 M PEG; +PHOS-NAK PACKE1 EACH PEG; +POTASSIUM CHLO10 MEQ PO; +PREVACID30 M3 PO; +RISPERIDONE0.25 M2 GT; +RISPERIDONE0.25 M2 PO; +ROBITUSSIN DM 101 OZ PEG; +SEROQUEL25 MG PEG; +XYLOCAINE10 MG/1 ML IM
== END | disposition home or self-care (01) ==
LOC: CT 00:42
DX: N20.0 Calculus of kidney (principal)

== ENCOUNTER 2018-12-17 14:10 | Emergency (ER) | payer MEDICARE, OTHER ==
[~2018-12-17] VITALS: Ht 175.2 cm; Wt 108.9 kg
== END 2018-12-17 15:08 | disposition home or self-care (01) ==
LOC: ED 14:10
DX: K94.23 Gastrostomy malfunction (principal); I13.0 Hypertensive heart and chronic kidney disease with heart failure and stage 1 through stage 4 chronic kidney disease, or unspecified chronic kidney disease; E11.22 Type 2 diabetes mellitus with diabetic chronic kidney disease; N18.3 Chronic kidney disease, stage 3 (moderate); I50.32 Chronic diastolic (congestive) heart failure; E78.5 Hyperlipidemia, unspecified; E03.9 Hypothyroidism, unspecified; Z88.6 Allergy status to analgesic agent; Z79.899 Other long term (current) drug therapy; Z86.718 Personal history of other venous thrombosis and embolism

== ENCOUNTER 2019-04-10 15:34 | Inpatient (IN) | payer MEDICARE, OTHER ==
[~2019-04-10] VITALS: Ht 167.6 cm; Wt 59.9 kg
[2019-04-10 15:39] VITALS: BP 101/62
[2019-04-10 17:06] LABS: BASO % 0.4 % (0.0-1.0); EOS # 0.1 10*3/uL (0.0-0.4); EOS % 1.4 % (1.0-4.0); LYMPH # 2.9 10*3/uL (1.3-4.4); LYMPH % 31.6 % (27.0-41.0); MEAN CELL VOLUME 97.8 fl (81.0-99.0); MEAN CORPUSCULAR HGB 31.9 pg (27.0-31.0); MEAN CORPUSCULAR HGB CONC 32.7 g/dl (33.0-37.0); MEAN PLATELET VOLUME 11.7 fl (9.6-12.3); MONO # 0.6 10*3/uL (0.1-1.0); MONO % 6.8 % (3.0-9.0); NEUT # 5.5 10*3/uL (2.3-7.9); NEUT % 59.7 % (47.0-73.0); PLATELET COUNT AUTOMATED 193 10*3/uL (130-400); RED BLOOD COUNT 5.01 10*6/uL (4.10-5.10); RED CELL DISTRI WIDTH 12.9 % (0-14.5); WHITE BLOOD COUNT 9.3 10*3/uL (4.8-10.8)
[2019-04-10 17:20] LABS: ALBUMIN 3.2 gm/dl (3.1-4.5); ALKALINE PHOSPHATASE 130 U/L (45-117); BUN 14 mg/dl (7-24); CHLORIDE 112 mmol/L (98-107); CREATININE 0.81 mg/dL (0.55-1.02); POTASSIUM 4.1 mmol/L (3.5-5.1); SGOT/AST 28 IU/L (3-35); SGPT/ALT 39 U/L (12-78); SODIUM 142 mmol/L (136-145); TOTAL PROTEIN 6.7 gm/dL (6.4-8.2)
--- NOTE | 2019-04-10 17:23 | NUR ---
PATIENT DID URINATE INTO DEPENDS. CHANGED AT THIS TIME BY CATARINO CULVER AND IV ACCESS EXTABLISHED.
[2019-04-10 17:46] VITALS: BP 129/77
--- NOTE | 2019-04-10 17:48 | NUR ---
PAITENT TAKEN TO FLOOR BY THIS NURSE AND CATARINO CULVER. NO CHANGE IN PATIENT STATUS. AT BEDSIDE.
--- NOTE | 2019-04-10 17:58 | NUR ---
MSADMTime: N A 79 year old FEMALE admitted to 5E under services of YANIRA DUNNE DO Pt. arrived via bed from ER. Chief complaint: PEG TUBE OCCLUDED. NURIA BRAVO
--- NOTE | 2019-04-10 18:13 | NUR ---
DR. KYLE NOTIFIED OF CONSULT.
[2019-04-10] MEDS ORDERED: TRAMADOL HCL50 MG PO (18:50)
[2019-04-10] MEDS ORDERED: VISTARIL25 MG PO (18:51)
[2019-04-10 20:00] VITALS: BP 145/106
--- NOTE | 2019-04-10 22:27 | NUR ---
SPOKE WITH DR COHEN REGARDING PT ACCEPTANCE TO [facility]. STATES HE WILL BE UP TO REVIEW RECOMMENDATIONS FROM HOSPICE CARE.
--- NOTE | 2019-04-10 22:53 | NUR ---
PT DISCHARGE IN PROCESS TO BE READMITTED TO HOSPICE.
[2019-04-11] MEDS ORDERED: ZOFRAN4 MG IV (00:02)
[2019-04-11] MEDS ORDERED: MORPHINE 11 MG/2 ML IV (00:04)
[2019-04-11] MEDS ORDERED: ATIVAN1 MG PO (00:04)
[2019-04-11] MEDS ORDERED: DULCOLAX10 M1 R (00:07)
[2019-04-11] MEDS ORDERED: TYLENOL325 M3 R (00:08)
== END 2019-04-10 22:53 | disposition hospice, home (50) | DRG 394 ==
LOC: ED 15:34 → EDHOLD 16:47 → 5E 17:21
PROVIDERS: Physician Assistant; ADMIT Internal Medicine
DX: K94.23 Gastrostomy malfunction (principal); I50.32 Chronic diastolic (congestive) heart failure; Y83.8 Other surgical procedures as the cause of abnormal reaction of the patient, or of later complication, without mention of misadventure at the time of the procedure; F41.9 Anxiety disorder, unspecified; N18.3 Chronic kidney disease, stage 3 (moderate); F03.90 Unspecified dementia, unspecified severity, without behavioral disturbance, psychotic disturbance, mood disturbance, and anxiety; E03.9 Hypothyroidism, unspecified; E78.5 Hyperlipidemia, unspecified; I27.20 Pulmonary hypertension, unspecified; E11.22 Type 2 diabetes mellitus with diabetic chronic kidney disease; E55.9 Vitamin D deficiency, unspecified; Z51.5 Encounter for palliative care; R41.0 Disorientation, unspecified; Z88.5 Allergy status to narcotic agent; Z86.718 Personal history of other venous thrombosis and embolism; Z86.711 Personal history of pulmonary embolism; Y92.89 Other specified places as the place of occurrence of the external cause; Z79.899 Other long term (current) drug therapy

== ENCOUNTER 2019-04-10 23:17 | Inpatient (IN) | payer OTHER ==
[~2019-04-10] VITALS: Ht 167.6 cm; Wt 59.5 kg
[~2019-04-10 23:17] MED LIST changes: +TRAMADOL HCL50 MG PO; +VISTARIL25 MG PO
--- NOTE | 2019-04-10 23:57 | NUR ---
Time: 2356 A 79 year old female admitted to under [facility] of [facility]. ÓSCAR MUNOZ
[2019-04-11] VITALS (9 sets, daily range): BP systolic 95–135; BP diastolic 50–103
[2019-04-11] MEDS ORDERED: ZOFRAN4 MG IV (00:02)
[2019-04-11] MEDS ORDERED: ATIVAN1 MG PO (00:04)
[2019-04-11] MEDS ORDERED: MORPHINE 11 MG/2 ML IV (00:04)
[2019-04-11] MEDS ORDERED: DULCOLAX10 M1 R (00:07)
[2019-04-11] MEDS ORDERED: TYLENOL325 M3 R (00:08)
--- NOTE | 2019-04-11 00:23 | NUR ---
DR COHEN NOTIFIED OF UPDATED MED REC PER DR ALLRED [facility]. ALSO AWARE OF PTS BP 121/103. NO NEW ORDERS AT THIS TIME.
--- NOTE | 2019-04-11 01:02 | NUR ---
SPOKE WITH [facility] REGARDING PTS CODEINE ALLERGY AND ORDER FOR MORPHINE, WANTS ME TO GET IT APPROVED BY THE DOCTOR AND CALL THEM BACK. DR COHEN STATES HE BELIEVES IT WILL BE FINE, JUST TO MONITOR THE PT AFTER GIVING IT. WILL CALL [facility] BACK AND INFORM THEM.
--- NOTE | 2019-04-11 01:57 | NUR ---
24 HOUR CHART CHECK COMPLETE.
--- NOTE | 2019-04-11 02:45 | NUR ---
BP RECHECK 102/62 AFTER ADMINISTRATION OF APRESOLINE.
--- NOTE | 2019-04-11 06:51 | NUR ---
PT ALREADY VACCINATED FOR THE FLU THIS SEASON.
--- NOTE | 2019-04-11 09:00 | NUR ---
[employer] Boat Pilot in to see patient. at bedside. When medically stable she will be discharged to [facility] where she is a LTC resident. certified social workers in health care following.
--- NOTE | 2019-04-11 12:43 | NUR ---
PT APHASIC, AT BEDSIDE TO GIVE HX AND CONSENTS
--- NOTE | 2019-04-11 16:07 | NUR ---
ATIVAN GIVEN FOR S/S AGITATION. WILL MONITOR.
--- NOTE | 2019-04-11 17:34 | NUR ---
ATIVAN GIVEN PER ORDERS FOR AGITATION, MORPHINE GIVEN PER REQUEST. WILL MONITOR.
--- NOTE | 2019-04-11 19:52 | NUR ---
SPOKE WITH TEMO FROM [facility]. STATES SHE WAS UNDER THE IMPRESSION THAT PT WAS TO BE DISCHARGED TONIGHT. SPOKE WITH THE HOSPITALIST, STATES THE PT WILL STAY SO WE CAN KEEP AN EYE ON HER OVER NIGHT. GAVE TEMO A CALL BACK STATES SHE WILL BE IN TO SEE THE PT TONIGHT.
--- NOTE | 2019-04-11 20:00 | NUR ---
PT STATES THAT "ATIVAN DOES NOTHING FOR HIS AND DOESN'T KNOW WHY WE WASTE OUR MONEY GIVING IT TO HER". PT IS RESTING COMFORTABLY AT THIS TIME, SAID THIS IS THE FIRST TIME SHES BEEN CALM FOR THE MAJORITY OF THE DAY. SEEMS TO GET UPSET EASILY WHEN THE PATIENT ISN'T CALM. I EXPLAINED TO HIM THAT SHE RESTED WELL FOR ME ALL NIGHT (04/10). SHE HAS OCCASIONAL EPISODES OF GRUNTING/THRASHING BUT IS EASILY CALMED DOWN. IT SEEMS THAT AT TIMES, THE HUSBANDS IRRITATION/AXIETY MAKES THE PATIENT MORE RESTLESS.
--- NOTE | 2019-04-11 21:00 | NUR ---
[facility]O RUBIN [facility] IN TO SEE PT AT THIS TIME.
--- NOTE | 2019-04-11 22:36 | NUR ---
IN TO SEE PT. PT RESTING PEACEFULLY. AWAKENS AND BECOMES AGGITATED OCCASIONALLY, BUT CAN BE TALKED DOWN EASILY. PT STILL ALERT TO SELF ONLY. VERY MINIMAL COMMUNICATION. LUNGS CLEAR, NO DISTRESS. BSX4, TUBE FEED RUNNING AT 35 ML/HR. PT TOLERATING WELL. WILL CONTINUE TO MONITOR.
--- NOTE | 2019-04-11 23:05 | NUR ---
24 HOUR CHART CHECK COMPLETE.
[2019-04-12] VITALS: BP 110/60
[2019-04-12 08:00] VITALS: BP 109/52
--- NOTE | 2019-04-12 08:00 | NUR ---
IN TO ROOM. PATIENT ASLEEP. NO S/S OF DISTRESS, PAIN OR SOB NOTED. PEG TUBE FEED RUNNING. RESPIRATIONS ARE EASY AND REGULAR. BED IN LOWEST LOCKED POSITION AND CALL LIGHT WTHIN REACH. WILL CONTINUE TO MONITOR.
--- NOTE | 2019-04-12 10:43 | NUR ---
DR. MONTEMAYOR NOTIFIED OF 'S CONCERNS OF CONTINUING HOME MEDS AND THE ATIVAN BEING INEFFECTIVE.
--- NOTE | 2019-04-12 11:53 | NUR ---
OUT TO DESK STATING THAT PT IS ACTING LIKE SHE IS IN PAIN. UPON ASSESSMENT PT IS CRYING AND MOVING AROUND IN THE BED. PRN MORPHINE ADMINISTERED. WILL MONITOR FOR EFFECTIVENESS.
[2019-04-12 12:00] VITALS: BP 111/54; BP 124/64
--- NOTE | 2019-04-12 12:56 | NUR ---
BACK TENDER reached out to Community Assistant Manager Of Operations- Bernice Sauceda. They will be arranging transportation for the patient to return to [facility]. Once they have a time. BACK TENDER will let the RN and work retail receiving clerk know. -FABI Dumont
--- NOTE | 2019-04-12 13:12 | NUR ---
NURSE TO NURSE REPORT CALLED TO THE [facility].
--- NOTE | 2019-04-12 13:20 | NUR ---
Discharge instructions reviewed with patient/family. Patient receptive and verbalizes understanding. Follow-up care arranged. Written instructions given to patient/family. AALIYAH HERNÁNDEZ
== END 2019-04-12 13:20 | DRG 394 ==
LOC: 5E 23:17
PROVIDERS: ADMIT Internal Medicine
PROC: 0D20XUZ Change Feeding Device in Upper Intestinal Tract, External Approach (ICD-10-PCS; principal; 2019-04-11)
DX: K94.23 Gastrostomy malfunction (principal); E44.0 Moderate protein-calorie malnutrition; I50.32 Chronic diastolic (congestive) heart failure; R63.3 Feeding difficulties; R62.7 Adult failure to thrive; F03.90 Unspecified dementia, unspecified severity, without behavioral disturbance, psychotic disturbance, mood disturbance, and anxiety; Z66 Do not resuscitate; Z51.5 Encounter for palliative care; F41.9 Anxiety disorder, unspecified; E78.5 Hyperlipidemia, unspecified; E03.9 Hypothyroidism, unspecified; N18.3 Chronic kidney disease, stage 3 (moderate); I27.20 Pulmonary hypertension, unspecified; E11.22 Type 2 diabetes mellitus with diabetic chronic kidney disease; I07.1 Rheumatic tricuspid insufficiency; Y83.3 Surgical operation with formation of external stoma as the cause of abnormal reaction of the patient, or of later complication, without mention of misadventure at the time of the procedure; Y92.128 Other place in nursing home as the place of occurrence of the external cause; Z80.8 Family history of malignant neoplasm of other organs or systems; Z88.5 Allergy status to narcotic agent; Z86.718 Personal history of other venous thrombosis and embolism; Z86.711 Personal history of pulmonary embolism; Z79.899 Other long term (current) drug therapy